=== PATIENT | male | born 1980 | race Hispanic/Latino ===

== ENCOUNTER → 2017-05-15 | Day surgery (SDC) | payer OTHER ==
[~2017-05-15] MED LIST: ATIVAN1 MG PO; FENTANYL CITRATE/PF 100MCG/2 ML INJ ONE; HYOSCYAMINE SULFATE 0.5 MG/ML AMP ONE; LIDOCAINE HCL 2% LOCAL INJ 5 ML SDV VIAL INJ ONE; MIDAZOLAM HCL 2 MG/2 ML VIAL ONE; NORCO 7.5-3251 EACH PO; PROPOFOL IV EMULSION 10 MG/ML 50 ML VIAL ONE; ZOLOFT50 MG
--- NOTE | 2017-05-15 12:43 | Operative Report ---
DATE OF PROCEDURE: May 15, 2017 REFERRING PHYSICIAN: Dominik Millan MD PROCEDURE PERFORMED: Colonoscopy. INDICATIONS FOR COLONOSCOPY: Patient is status post diversion colostomy for perforated diverticulitis. Colostomy is carried out to clear the colon prior to colostomy reversal. MEDICATION: Patient was done under MAC. Please see anesthesiologist's note. PROCEDURE: With the patient in the supine position, the flexible fiberoptic Olympus colonoscope was inserted through the stoma and advanced all the way to the cecum. It was then withdrawn slowly. Mucosa overlying the cecum, ascending colon, and transverse colon appeared to be within normal limits. Some diverticular disease was noted proximal to the stoma. The scope was subsequently withdrawn. Patient tolerated the procedure well. IMPRESSION: Diverticulosis. Otherwise, the colon is within normal limits. The patient is cleared for colostomy reversal. Job#: [id number] cc:DOMINIK MILLAN MD
== END | disposition home or self-care (01) ==
LOC: OR 08:37
PROVIDERS: ATTEND Internal Medicine Gastroenterology
DX: Z43.3 Encounter for attention to colostomy (principal); K57.30 Diverticulosis of large intestine without perforation or abscess without bleeding; R11.2 Nausea with vomiting, unspecified; R12 Heartburn; R03.0 Elevated blood-pressure reading, without diagnosis of hypertension; Z68.34 Body mass index [BMI] 34.0-34.9, adult
CPT/HCPCS: 45378; J1980; J2001; J2250

== ENCOUNTER → 2017-06-21 | Outpatient (CLI) | payer OTHER ==
[~2017-06-21] MED LIST changes: -FENTANYL CITRATE/PF 100MCG/2 ML INJ ONE; -HYOSCYAMINE SULFATE 0.5 MG/ML AMP ONE; -LIDOCAINE HCL 2% LOCAL INJ 5 ML SDV VIAL INJ ONE; -MIDAZOLAM HCL 2 MG/2 ML VIAL ONE; -PROPOFOL IV EMULSION 10 MG/ML 50 ML VIAL ONE
--- NOTE | 2017-06-21 16:21 | Diagnostic Imaging Report ---
TECHNIQUE: Magnetic resonance imaging of the LEFT HAND was performed WITHOUT injected contrast. HISTORY: Left hand pain COMPARISON: None. FINDINGS: Bones: No fracture. Cyst in the capitate. Joints: Widening of the scapholunate interval. No arthritis. Negative ulnar variance. Soft Tissues: Soft tissue swelling of the thumb. IMPRESSION: No acute osseous abnormality. Soft tissue swelling of the thumb. Signed by: Dr. Brooks Byrd M.D. on 06/21/2017 4:17 PM
== END ==
LOC: CT 14:42
PROVIDERS: ATTEND Family Medicine
DX: S60.012A Contusion of left thumb without damage to nail, initial encounter (principal); S60.222A Contusion of left hand, initial encounter; M79.89 Other specified soft tissue disorders

== ENCOUNTER 2017-07-15 11:01 | Inpatient (IN) | payer OTHER ==
[2017-07-12 09:14] LABS: BASOPHILS % 0.4 % (0.0-1.0); EOSINOPHILS # (AUTO) 0.3 (0.0-0.4); EOSINOPHILS % 3.2 % (0.0-6.0); HEMATOCRIT 43.9 % (38.2-49.6); HEMOGLOBIN 16.1 g/dL (14.0-18.0); LYMPHOCYTES # (AUTO) 2.1 (1.0-3.2); LYMPHOCYTES % 25.3 % (18.0-39.1); MEAN CORPUSCULAR HGB CONC 36.7 g/dL (31-35); MEAN CORPUSCULAR VOLUME 87.3 fL (81-99); MONOCYTES # (AUTO) 0.8 (0.2-0.8); MONOCYTES % 9.3 % (4.4-11.3); NEUTROPHILS % 61.4 % (38.7-80.0); PLATELET COUNT 247 x10e3/uL (140-360); RED BLOOD COUNT 5.03 x10e6/uL (4.3-5.7); RED CELL DISTRIBUTION WIDTH 12.3 % (11.7-14.4)
[2017-07-15] VITALS (14 sets, daily range): BP systolic 130–146; BP diastolic 84–100
[~2017-07-15] VITALS: Ht 165.1 cm; Wt 94.8 kg
[~2017-07-15 11:01] MED LIST changes: +PANTOPRAZOLE SO40 MG PO; +SUCRALFATE1 GM PO
--- OUTSIDE RECORDS SUMMARY | 2017-07-15 11:03 | XMS REPORT ---
Author Author [facility] Address Unknown Phone Unavailable Care Team Providers Care Software Quality Assurance Specialist Name Role Phone EMERALD CORDERO Unavailable Unavailable OLIVARESIVAN Unavailable Unavailable Problems This patient has no known problems. Allergies, Adverse Reactions, Alerts This patient has no known allergies or adverse reactions. Medications This patient has no known medications. Results Test Description Test Time Test Comments Text Results Atomic Results Result Comments CT HAND LEFT WO [place] [address] Patient Name: SPIKE CORREA MR #: [id number] : 1980 Age/Sex: 37/M Req #: [id number] [facility] Physician: Ordered by: EMERALD CORDERO DO Report #: [id number] Location: CT Room/Bed: Procedure: [id number] CT/CT HAND LEFT WO Exam Date: Exam Time: REPORT STATUS: Signed TECHNIQUE: Magnetic resonance imaging of the LEFT HAND was performed WITHOUT injected contrast. HISTORY: Left hand pain COMPARISON: None. FINDINGS: Bones: No fracture. Cyst in the capitate. Joints: Widening of the scapholunate interval. No arthritis. Negative ulnar variance. Soft Tissues: Soft tissue swelling of the thumb. IMPRESSION: No acute osseous abnormality. Soft tissue swelling of the thumb. Signed by: Dr. Alfie Costello M.D. on 06/21/2017 4: 17 PM Dictated By: ALFIE COSTELLO MD 16 Transcribed By: CLAUDETTE on 06/21/171616 COPY TO: EMERALD CORDERO DO CHEST SINGLE (PORTABLE) [place] [address] Patient Name: SPIKE CORREA MR #: [id number] : 1980 Age/Sex: 36/M Req #: [id number] Adm Physician: IVAN OLIVARES MD Ordered by: IVAN OLIVARES MD Report #: [id number] Location: ICU Room/Bed: ICU [facility] Procedure: [id number] DX/CHEST SINGLE (PORTABLE) Exam Date: 12/01 Exam Time: 1218 REPORT STATUS: Signed EXAMINATION: CHEST SINGLE (PORTABLE) INDICATION: COMPARISON: Chest radiograph 06/27/2016 FINDINGS: AP view TUBES and LINES: Nasogastric tube overlies the expected course of the esophagus with tip extending out of the field of view below the diaphragm. LUNGS: Lungs are moderately inflated. Lungs are clear. There is no evidence of pneumonia or pulmonary edema. PLEURA: No pleural effusion or pneumothorax. HEART AND MEDIASTINUM: The cardiomediastinal silhouette is unremarkable. BONES AND SOFT TISSUES: No acute osseous lesion. Soft tissues are unremarkable. UPPER ABDOMEN: No free air under the diaphragm. IMPRESSION: No acute thoracic abnormality. Signed by: DR. Yobani Monge MD on 12/01/2016 12:37 PM Dictated By: YOBANI MONGE MD 1237 Transcribed By: CLAUDETTE on 12/01/16 1237 COPY TO: IVAN OLIVARES MD CT ABDOMEN/PELVIS W [place] [address] [place], [place] [address] Patient Name: SPIKE CORREA MR #: [id number] : 1980 Age/Sex: 36/M Req # : [id number] Adm Physician: IVAN OLIVARES MD Ordered by: MARJ GOLD MD Report #: [id number] Location: MED/SURG2 Room/Bed: [facility] Procedure: [id number] CT/CT ABDOMEN/PELVIS W Exam Date: Exam Time: REPORT STATUS: Signed PROCEDURE: CT ABDOMEN AND PELVIS WITH CONTRAST COMPARISON: [facility], CT, CT ABDOMEN/PELVIS W, 11/22/2016, 17:39. INDICATIONS: Diverticulitis TECHNIQUE: Routine protocol Volumetric CT abdomen and pelvis after administration of 100 mL Isovue-370 intravenous contrast and dilated positive enteric contrast. DLP: 543.49. FINDINGS: Clear lung bases. No pleural effusions. Normal heart size. Liver: Stable 1.5 cm low attenuation nodule within the right lobe (image 20, series 2). Otherwise, normal Gallbladder: Distended to 11 cm length; otherwise, normal. Pancreas: Normal Spleen: Standard 14 cm. Adrenal glands: Normal Kidneys: 2 cm simple cyst on the right. Otherwise, normal. Urinary bladder: Bladder thickening at the roof of left lateral margin (see image 50, series 301). Prostate seminal vesicles: Normal Bowel: Normal caliber. Extensive inflammation of the sigmoid colon consistent with known perforated diverticulitis/colitis. Peritoneum: Intraperitoneal abscess measuring 6.5 x 3.6 x 3 cm (image 63, series 2) with extensive regional pelvic inflammation and multiple small foci of extra luminal gas. The described abscess is in continuity with a tract extending to the superior bladder wall (image 73, series 2). Vasculature: Normal caliber. Lymph nodes: Subcentimeter retroperitoneal (image 41, series 2). Otherwise, normal Skeleton: Normal Soft tissues: Normal CONCLUSION: 1. Complicated sigmoid diverticulitis/colitis. The intraperitoneal abscess seen on the study from November 22 has evolved to now measure 6.5 x 3.6 x 3 cm. There is associated thickening of the bladder wall, presumably reactive cystitis. No definite rectovesical fistula at this time. 2. Hydropic gallbladder. 3. Indeterminant 1.5 cm right liver nodule. Primary differential diagnosis includes abscess, complex cyst or mass. Followup cross-sectional liver dedicated imaging (CT or MRI) is recommended after resolution of complicated diverticulitis. 4. Splenomegaly. Dictated by: Ravi Edge M.D. on 11/26/2016 at 12:57 Electronically approved by: Ravi Edge M.D. on 11/26/2016 at 12:57 Dictated By: RAVI EDGE MD 1257 Transcribed By: AYESHA on 11/26/16 1257 COPY TO: MARJ GOLD MD CT ABDOMEN/PELVIS W [place] [address] Patient Name: SPIKE CORREA MR #: [id number] : 1980 Age/Sex: 36/M Req # : [id number] [facility] Physician: Ordered by: EMERALD CORDERO DO Report #: [id number] Location: CT Room/Bed: Procedure: [id number] CT/CT ABDOMEN/PELVIS W Exam Date: 11/22/16 Exam Time : 1700 REPORT STATUS: Signed PROCEDURE: CT ABDOMEN AND PELVIS WITH CONTRAST TECHNIQUE: The abdomen and pelvis were scanned utilizing a multidetector helical scanner from the diaphragm to the lesser trochanter after the IV administration of 100 cc of Isovue 370 and the oral administration of dilute Gastrografin. Coronal and sagittal multiplanar reformations were obtained. COMPARISON: None. INDICATIONS: LLQ PAIN FINDINGS: LOWER THORAX: Unremarkable. HEPATOBILIARY: Normal hepatic size and contour. 1.1 x 1.4 x 1.6 cm somewhat ill-defined hypodense lesion in hepatic segment (series 2, image 29), which does not measure simple fluid. No biliary ductal dilation. Gallbladder is unremarkable. SPLEEN: Mild clinically, measuring 13.9 cm in AP diameter. PANCREAS: No focal masses or ductal dilatation. ADRENALS: No adrenal nodules. KIDNEYS/ URETERS: No hydronephrosis, stones, or solid mass lesions. PELVIC ORGANS/ BLADDER: Bladder is unremarkable. Prostate is unremarkable. PERITONEUM / RETROPERITONEUM: No free air or fluid. LYMPH NODES: No lymphadenopathy. VESSELS: Unremarkable. GI TRACT: Descending and sigmoid colon diverticulosis. There is an approximately 11 cm segment of the proximal and mid sigmoid colon, which shows moderate to marked wall thickening, and moderate surrounding inflammatory changes. A 3.7 x 5.3 x 4.0 cm fluid and gas collection is located directly above the previously described segment of sigmoid colon (series 2 image 56 and sagittal image 68) and shows peripheral enhancement. An extraluminal air focus is noted in the mid pelvis (series 2, image 61). Resolution is unremarkable, without dilation, obstruction, or wall thickening. BONES AND SOFT TISSUES: No acute bony abnormalities. Soft tissues are grossly unremarkable. IMPRESSION: 1. findings likely represent acute sigmoid diverticulitis, with development of contained perforation/abscess superior to the midportion of the sigmoid colon (which is not amenable to percutaneous drainage given its location). No pneumoperitoneum. Sigmoid focal colitis is a secondary consideration. 2. Indeterminate ill-defined 1.6 cm lesion in hepatic segment which does not measure simple fluid. This may be further assessed with contrast-enhanced abdominal MRI with liver mass protocol to avoid further radiation exposure. 3. Findings discussed with Neftali Nguyen PA-C November 22, 2016 at 1815 hrs. Kyaw Sabillon M.D. Dictated by: Kyaw Sabillon M.D. on 11/22/2016 at 18:24 Electronically approved by : Kyaw Sabillon M.D. on 11/22/2016 at 18:24 Dictated By : KYAW SABILLON MD 23 Transcribed By: AYESHA on 11/22/161823 COPY TO: EMERALD CORDERO DO
[2017-07-15] MEDS ORDERED: MINERAL OIL STERILE 10ML VIAL ONE (11:32)
[2017-07-15] MEDS ORDERED: NALOXONE HCL INJ 0.4 MG/ML AMP IV PRN (15:45)
[2017-07-15] MEDS ORDERED: ACETAMINOPHEN 1000 MG/100 ML IV PRN (15:45)
[2017-07-15] MEDS ORDERED: PROMETHAZINE HCL (IM) 25 MG/ML VIAL IV PRN (15:45)
[2017-07-15] MEDS ORDERED: HYDROMORPHONE 0.2MG/ML-SOD CHL 30ML PCA SYRINGE IV ONE (16:04)
[2017-07-15] MEDS ORDERED: HYDRALAZINE HCL 20 MG/ML VIAL ONE (16:18)
[2017-07-15] MEDS ORDERED: METOCLOPRAMIDE HCL 10 MG/2ML VIAL ONE (16:22)
[2017-07-15] MEDS ORDERED: ONDANSETRON HCL INJ 2 MG/ML VIAL ONE ×2 (16:22→18:29)
--- NOTE | 2017-07-15 16:34 | Operative Report ---
DATE OF PROCEDURE: July 15, 2017 PREOPERATIVE DIAGNOSIS: Status post perforated diverticulitis with Daysi's pouch and end colostomy secondary to diverticulitis. POSTOPERATIVE DIAGNOSIS: Status post perforated diverticulitis with Daysi's pouch and end colostomy secondary to diverticulitis. OPERATION PERFORMED: Exploratory laparotomy, low anterior resection with mobilization of the splenic flexure, extensive lysis of adhesions and closure of colostomy and transanal stapled anastomosis. TIRE AND TUBE REPAIRER: Dr. Mckinley Millan and Myah RAMIREZ. ANESTHESIA: General. COMPLICATIONS: None. ESTIMATED BLOOD LOSS: 200 mL. DESCRIPTION OF PROCEDURE: With the patient lying in bed in the supine position with the legs up in stirrups, the abdomen and perineum were prepped with Betadine solution and draped in the usual manner. An elliptical incision was made around the left lower quadrant colostomy site. The colostomy was mobilized all the way down to the fascia and was then freed up from the fascia. The excess of the colostomy was then resected, and the colostomy of the proximal colon was then dropped back into the intraabdominal cavity. Gloves and instruments were then changed, and the old colostomy site was isolated from the surgical field. A lower midline incision was then made. It was carried down through the subcutaneous tissue into the midline fascia. The peritoneum was opened, and the abdomen was entered. Upon entering the abdominal cavity, multiple adhesions were encountered. The proximal colostomy site was identified. All of the adhesions were then slowly and carefully taken down. We could not at this point see the distal end of the colon. The left colon was then mobilized off of the lateral gutter, and the splenic flexure was brought down using the Enseal device, and the colon was divided at the level of the splenic flexure and the excess was sent for pathological examination. A partial omentectomy was also performed, and the specimens were sent for pathological examination. The transverse colon was then mobilized so that it would reach all the way down into the pelvis. After this was done, all of the pelvic adhesions were then slowly and carefully taken down and the stump of the distal sigmoid colon was then identified. The sigmoid colon was then mobilized posteriorly, and the upper rectum was mobilized posteriorly and the upper rectum was then mobilized circumferentially using the Enseal device, and the lower sigmoid colon that was still present was resected with another application of the contour device and sent for pathological examination. Once this was done, a number 29 EEA anvil was placed in the proximal colon and sutured in place with a purse-string of 2-0 Prolene. We then went transanally and dilated the anus and the rectum with the dilators, and the 29 stapler was then introduced transanally and brought out through the center of the staple line in the upper rectum. The stapler and the anvil were then joined, and the stapler was slowly closed and fired. Two perfect doughnuts were obtained. Once this was done, gloves and instruments and gowns were exchanged. The whole area was then thoroughly irrigated, and perfect hemostasis was ascertained. The anastomosis was then reinforced with interrupted sutures of 3-0 silk. The 10 flat Shantanu-Ortega was then brought out through the right lower quadrant incision and placed into the rectal space and sutured to the skin with 2-0 silk. The peritoneum of the colostomy site was then closed with a running suture of number 1 Vicryl. The peritoneum was closed with a running number 1 Vicryl. The midline fascia was closed with a running suture of number 1 Vicryl. A 1/4-inch Rojas drain was left in the subcutaneous tissue, and the skin was closed with clips. The colostomy site fascia was then approximated using interrupted [id number] of number 1 Vicryl. The 1/4 inch [place] drain was left in the fat, and the skin was closed with interrupted vertical mattress sutures of 2-0 nylon and leah. Dressings were applied. The sponge, lap and needle count was correct. The patient tolerated the procedure well and returned to the recovery room in stable condition. Job#: [id number]
[2017-07-15] MEDS ORDERED: LABETALOL HCL 20 ML ONE (17:08)
[2017-07-15] MEDS ORDERED: INSULIN REGULAR, HUMAN 100 UNIT/1 ML 3ML VIAL ONE (17:22)
[2017-07-15] MEDS ORDERED: CEFOXITIN 1GM/ DEXTROSE 50ML 50 ML IV SCH (18:00)
[2017-07-15] MEDS ORDERED: CEFOXITIN SOD 1 GM VIAL ONE (18:29)
[2017-07-15] MEDS ORDERED: SEVOFLURANE INHAL SOLN 250 ML PEN BTL ONE (18:29)
[2017-07-15] MEDS ORDERED: GLYCOPYRROLATE INJ 1MG/ 5 ML SYR ONE (18:29)
[2017-07-15] MEDS ORDERED: NEOSTIGMINE 5 MG/5ML SYR ONE (18:29)
[2017-07-15] MEDS ORDERED: LIDOCAINE HCL 2% LOCAL INJ 5 ML SDV VIAL INJ ONE (18:29)
[2017-07-15] MEDS ORDERED: ROCURONIUM BROMIDE 10 MG/ML 5ML VIAL ONE (18:29)
[2017-07-15] MEDS ORDERED: DEXAMETHASONE SOD PHOS INJ 4 MG/ML VIAL ONE (18:29)
[2017-07-15] MEDS ORDERED: LABETALOL HCL 5 MG/ML 20ML VIAL ONE (18:29)
[2017-07-15] MEDS ORDERED: ACETAMINOPHEN 1000 MG/100 ML IV ONE (18:29)
[2017-07-15] MEDS ORDERED: PROPOFOL IV EMULSION 10 MG/ML 20 ML VIAL ONE (18:29)
[2017-07-15] MEDS ORDERED: MIDAZOLAM HCL 2 MG/2 ML VIAL ONE (18:40)
[2017-07-15] MEDS ORDERED: FENTANYL CITRATE/PF 100MCG/2 ML INJ ONE (18:40)
[2017-07-15] MEDS ORDERED: MORPHINE SULFATE INJ 10 MG/ML ONE (18:40)
[2017-07-15] MEDS: SODIUM CHLORIDE 0.9% 250ML IRRIG IR SCH ×2 (19:45→23:45)
[2017-07-15] MEDS ORDERED: LACTATED RINGER'S 0 ML ONE (19:51)
[2017-07-15] MEDS: PANTOPRAZOLE 40 MG 10ML VIAL IV SCH (21:34)
[2017-07-15] MEDS: DEXTROSE 5%/LACTATED RINGERS 1,000 ML IV SCH (21:34)
[2017-07-15] MEDS: CEFOXITIN SOD 1 GM VIAL IV SCH (21:35)
[2017-07-15] MEDS: PROMETHAZINE 12.5MG/ NACL 0.9% 50 ML IV PRN (21:36)
[2017-07-16] VITALS (33 sets, daily range): BP systolic 84–167; BP diastolic 62–97
[2017-07-16] MEDS: KETOROLAC TROMETHAMINE 30 MG/ML VIAL IV PRN ×3 (01:00→20:15)
[2017-07-16] MEDS: HYDROMORPHONE 0.2MG/ML-SOD CHL 30ML PCA SYRINGE IV PRN ×3 (03:33→19:20)
[2017-07-16] MEDS: CEFOXITIN SOD 1 GM VIAL IV SCH ×2 (03:33)
[2017-07-16] MEDS: SODIUM CHLORIDE 0.9% 250ML IRRIG IR SCH ×10 (03:33→23:59)
[2017-07-16] MEDS ORDERED: CEFOXITIN 1GM/ DEXTROSE 50ML 50 ML IV ONE (03:41)
[2017-07-16] MEDS ORDERED: CEFOXITIN SOD 1 GM VIAL ONE (03:57)
[2017-07-16] MEDS ORDERED: LACTATED RINGER'S 1,000 ML IV ONE (04:15)
[2017-07-16] MEDS: DEXTROSE 5%/LACTATED RINGERS 1,000 ML IV SCH ×4 (05:30→23:58)
[2017-07-16 06:43] LABS: BASOPHILS % 0.1 % (0.0-1.0); HEMATOCRIT 35.2 % (38.2-49.6); HEMOGLOBIN 12.7 g/dL (14.0-18.0); LYMPHOCYTES # (AUTO) 1.6 (1.0-3.2); LYMPHOCYTES % 8.1 % (18.0-39.1); MEAN CORPUSCULAR HEMOGLOBIN 32.2 pg (28-32); MEAN CORPUSCULAR HGB CONC 36.1 g/dL (31-35); MEAN CORPUSCULAR VOLUME 89.1 fL (81-99); MONOCYTES # (AUTO) 2.6 (0.2-0.8); MONOCYTES % 13.1 % (4.4-11.3); NEUTROPHILS # (AUTO) 15.3 (2.1-6.9); NEUTROPHILS % 78.2 % (38.7-80.0); PLATELET COUNT 340 x10e3/uL (140-360); RED BLOOD COUNT 3.95 x10e6/uL (4.3-5.7); RED CELL DISTRIBUTION WIDTH 12.5 % (11.7-14.4)
[2017-07-16 06:54] LABS: ANION GAP 14.6 mmol/L (8-16); BLOOD UREA NITROGEN 14 mg/dL (7-26); BUN/CREATININE RATIO 12 (6-25); CALCIUM 8.5 mg/dL (8.4-10.2); CARBON DIOXIDE 23 mmol/L (22-29); CHLORIDE 107 mmol/L (98-107); CREATININE, SERUM 1.15 mg/dL (0.72-1.25); EST GLOMERULAR FILTRATION RATE > 60 ML/MIN (60-); GLUCOSE 157 mg/dL (74-118); POTASSIUM 4.6 mmol/L (3.5-5.1); SODIUM 140 mmol/L (136-145)
[2017-07-16] MEDS: PROMETHAZINE 12.5MG/ NACL 0.9% 50 ML IV PRN ×2 (08:25→23:38)
[2017-07-16] MEDS: PANTOPRAZOLE 40 MG 10ML VIAL IV SCH (17:00)
[2017-07-17] VITALS (33 sets, daily range): BP systolic 118–161; BP diastolic 72–99
[2017-07-17] MEDS: HYDROMORPHONE 0.2MG/ML-SOD CHL 30ML PCA SYRINGE IV PRN ×3 (03:05→17:29)
[2017-07-17] MEDS: SODIUM CHLORIDE 0.9% 250ML IRRIG IR SCH ×6 (04:36→23:15)
[2017-07-17 05:58] LABS: BASOPHILS % 0.2 % (0.0-1.0); EOSINOPHILS # (AUTO) 0.1 (0.0-0.4); HEMATOCRIT 27.4 % (38.2-49.6); HEMOGLOBIN 9.8 g/dL (14.0-18.0); LYMPHOCYTES % 17.1 % (18.0-39.1); MEAN CORPUSCULAR HEMOGLOBIN 32.6 pg (28-32); MEAN CORPUSCULAR HGB CONC 35.8 g/dL (31-35); MONOCYTES # (AUTO) 1.4 (0.2-0.8); MONOCYTES % 11.8 % (4.4-11.3); NEUTROPHILS % 69.6 % (38.7-80.0); PLATELET COUNT 185 x10e3/uL (140-360); RED BLOOD COUNT 3.01 x10e6/uL (4.3-5.7); RED CELL DISTRIBUTION WIDTH 12.6 % (11.7-14.4)
[2017-07-17] MEDS: DEXTROSE 5%/LACTATED RINGERS 1,000 ML IV SCH ×3 (05:59→22:05)
[2017-07-17 06:34] LABS: ANION GAP 8.9 mmol/L (8-16); BLOOD UREA NITROGEN 14 mg/dL (7-26); BUN/CREATININE RATIO 16 (6-25); CALCIUM 8.5 mg/dL (8.4-10.2); CARBON DIOXIDE 28 mmol/L (22-29); CHLORIDE 107 mmol/L (98-107); EST GLOMERULAR FILTRATION RATE > 60 ML/MIN (60-); GLUCOSE 103 mg/dL (74-118); POTASSIUM 3.9 mmol/L (3.5-5.1); SODIUM 140 mmol/L (136-145)
[2017-07-17] MEDS: PANTOPRAZOLE 40 MG 10ML VIAL IV SCH (15:45)
[2017-07-17] MEDS ORDERED: ACETAMINOPHEN 1000 MG/100 ML IV SCH (18:00)
[2017-07-17] MEDS ORDERED: ACETAMINOPHEN 1000 MG/100 ML IV PRN (18:30)
[2017-07-17] MEDS: PROMETHAZINE 12.5MG/ NACL 0.9% 50 ML IV PRN (20:07)
[2017-07-17] MEDS: BISACODYL 10 MG SUPP PR SCH (21:24)
[2017-07-18] VITALS (16 sets, daily range): BP systolic 134–173; BP diastolic 73–107
[2017-07-18] MEDS: HYDROMORPHONE 0.2MG/ML-SOD CHL 30ML PCA SYRINGE IV PRN ×3 (00:30→22:10)
[2017-07-18] MEDS: SODIUM CHLORIDE 0.9% 250ML IRRIG IR SCH ×2 (03:25→07:54)
[2017-07-18] MEDS: KETOROLAC TROMETHAMINE 30 MG/ML VIAL IV PRN ×2 (03:25→15:45)
[2017-07-18 07:00] LABS: RED BLOOD COUNT 2.67 x10e6/uL (4.3-5.7)
[2017-07-18 07:01] LABS: EOSINOPHILS % 3.1 % (0.0-6.0); HEMATOCRIT 24.1 % (38.2-49.6); HEMOGLOBIN 8.6 g/dL (14.0-18.0); LYMPHOCYTES % 16.9 % (18.0-39.1); MEAN CORPUSCULAR HEMOGLOBIN 32.2 pg (28-32); MEAN CORPUSCULAR HGB CONC 35.7 g/dL (31-35); MEAN CORPUSCULAR VOLUME 90.3 fL (81-99); MONOCYTES % 9.5 % (4.4-11.3); NEUTROPHILS % 70.1 % (38.7-80.0); PLATELET COUNT 178 x10e3/uL (140-360); RED CELL DISTRIBUTION WIDTH 12.5 % (11.7-14.4)
[2017-07-18 07:02] LABS: BASOPHILS % 0.2 % (0.0-1.0); EOSINOPHILS # (AUTO) 0.3 (0.0-0.4); LYMPHOCYTES # (AUTO) 1.5 (1.0-3.2); MONOCYTES # (AUTO) 0.9 (0.2-0.8); NEUTROPHILS # (AUTO) 6.3 (2.1-6.9)
[2017-07-18 07:21] LABS: ANION GAP 9.6 mmol/L (8-16); CARBON DIOXIDE 26 mmol/L (22-29); CHLORIDE 104 mmol/L (98-107); POTASSIUM 3.6 mmol/L (3.5-5.1); SODIUM 136 mmol/L (136-145)
[2017-07-18 07:22] LABS: BLOOD UREA NITROGEN 8 mg/dL (7-26); BUN/CREATININE RATIO 10 (6-25); CALCIUM 8.4 mg/dL (8.4-10.2); CREATININE, SERUM 0.77 mg/dL (0.72-1.25); EST GLOMERULAR FILTRATION RATE > 60 ML/MIN (60-); GLUCOSE 101 mg/dL (74-118)
[2017-07-18] MEDS: BISACODYL 10 MG SUPP PR SCH (08:00)
[2017-07-18] MEDS: DEXTROSE 5%/LACTATED RINGERS 1,000 ML IV SCH ×3 (10:57→23:58)
[2017-07-18] MEDS: PROMETHAZINE 12.5MG/ NACL 0.9% 50 ML IV PRN ×2 (12:46→22:21)
[2017-07-18] MEDS: PANTOPRAZOLE 40 MG 10ML VIAL IV SCH (15:45)
[2017-07-18] MEDS ORDERED: NALOXONE HCL INJ 0.4 MG/ML AMP IV PRN (16:15)
[2017-07-18] MEDS ORDERED: HYDROMORPHONE 0.2MG/ML-SOD CHL 30ML PCA SYRINGE IV PRN (16:15)
[2017-07-18 16:16] LABS: HEMATOCRIT 24.7 % (38.2-49.6)
[2017-07-19] VITALS: BP 161/99
[2017-07-19 04:00] VITALS: BP 166/99
[2017-07-19] MEDS: PROMETHAZINE 12.5MG/ NACL 0.9% 50 ML IV PRN (05:44)
[2017-07-19 08:20] VITALS: BP 170/88
[2017-07-19] MEDS: DEXTROSE 5%/LACTATED RINGERS 1,000 ML IV SCH (09:31)
[2017-07-19] MEDS: HYDROMORPHONE 0.2MG/ML-SOD CHL 30ML PCA SYRINGE IV PRN (09:32)
[2017-07-19] MEDS: PANTOPRAZOLE 40 MG 10ML VIAL IV SCH (14:34)
[2017-07-19] MEDS: KETOROLAC TROMETHAMINE 30 MG/ML VIAL IM PRN ×2 (14:35→21:26)
[2017-07-19 20:00] VITALS: BP 158/88
[2017-07-19] MEDS: HYDROCODONE/APAP 7.5MG-325MG 1 EA TAB PO PRN (20:21)
[2017-07-19] MEDS: BISACODYL 10 MG SUPP PR SCH (21:26)
[2017-07-19 22:48] VITALS: BP 158/88
[2017-07-20] VITALS (7 sets, daily range): BP systolic 149–178; BP diastolic 77–88
[2017-07-20] MEDS: HYDROCODONE/APAP 7.5MG-325MG 1 EA TAB PO PRN ×4 (01:01→23:55)
[2017-07-20] MEDS: PROMETHAZINE 12.5MG/ NACL 0.9% 50 ML IV PRN ×2 (01:35→20:48)
[2017-07-20] MEDS: KETOROLAC TROMETHAMINE 30 MG/ML VIAL IM PRN ×3 (03:18→19:53)
[2017-07-20] MEDS: HYDROMORPHONE 1MG/1ML INJ IV PRN ×2 (07:50→14:45)
[2017-07-20] MEDS: DEXTROSE 5%/LACTATED RINGERS 1,000 ML IV SCH (07:50)
[2017-07-20] MEDS: BISACODYL 10 MG SUPP PR SCH (07:51)
[2017-07-20] MEDS: PANTOPRAZOLE 40 MG 10ML VIAL IV SCH (14:45)
[2017-07-21] VITALS (8 sets, daily range): BP systolic 134–199; BP diastolic 68–86
[2017-07-21] MEDS: KETOROLAC TROMETHAMINE 30 MG/ML VIAL IM PRN ×3 (01:10→22:48)
[2017-07-21] MEDS: DEXTROSE 5%/LACTATED RINGERS 1,000 ML IV SCH ×2 (03:57→20:40)
[2017-07-21] MEDS: HYDROCODONE/APAP 7.5MG-325MG 1 EA TAB PO PRN ×3 (04:05→20:40)
[2017-07-21] MEDS: HYDROMORPHONE 1MG/1ML INJ IV PRN ×2 (08:16→16:04)
[2017-07-21] MEDS: PANTOPRAZOLE 40 MG 10ML VIAL IV SCH (16:04)
[2017-07-22] VITALS: BP 144/74
[2017-07-22 04:00] VITALS: BP 157/81
[2017-07-22] MEDS: HYDROCODONE/APAP 7.5MG-325MG 1 EA TAB PO PRN ×3 (04:16→14:10)
[2017-07-22] MEDS: PROMETHAZINE 12.5MG/ NACL 0.9% 50 ML IV PRN ×2 (04:16→07:30)
[2017-07-22] MEDS: KETOROLAC TROMETHAMINE 30 MG/ML VIAL IM PRN ×2 (07:43→15:07)
[2017-07-22] MEDS: SIMETHICONE 80 MG CHEW PO PRN ×2 (07:52→14:10)
[2017-07-22 08:11] VITALS: BP 168/84
[2017-07-22 11:09] VITALS: BP 168/84
[2017-07-22 13:41] VITALS: BP 140/89
[2017-07-22] MEDS: PANTOPRAZOLE 40 MG 10ML VIAL IV SCH (14:49)
[2017-07-22 17:19] VITALS: BP 163/80
[2017-07-22] MEDS ORDERED: HYDROCODONE/APAP 7.5MG-325MG 1 EA TAB PO ONE (17:45)
[2017-07-22] MEDS ORDERED: HYDROCODONE/APAP 7.5MG-325MG 1 EA TAB PO PRN (18:00)
== END 2017-07-22 18:34 | disposition home or self-care (01) | DRG 331 ==
LOC: OR 11:01 → MED/SURG 16:07 → ICU 18:06 → MED/SURG 07-18 11:44 → ACU 07-22 10:48 → MED/SURG 07-22 10:48
PROVIDERS: ADMIT Surgery; ATTEND Surgery
PROC: 0DNW0ZZ Release Peritoneum, Open Approach (ICD-10-PCS; 2017-07-15)
PROC: 0DBN0ZZ Excision of Sigmoid Colon, Open Approach (ICD-10-PCS; principal; 2017-07-15 12:01)
PROC: 0DBU0ZZ Excision of Omentum, Open Approach (ICD-10-PCS; 2017-07-15 12:01)
DX: Z43.3 Encounter for attention to colostomy (principal); K57.30 Diverticulosis of large intestine without perforation or abscess without bleeding
CPT/HCPCS: 36415; 80048; 82948; 85014; 85018; 85025; 86850; 86900; 88305; 88307; J0360; J0694; J1100; J1170; J1885; J2001; J2250; J2270; J2405; J2550; J2765; J7120

== ENCOUNTER 2017-07-23 01:35 | Inpatient (IN) | payer OTHER ==
[~2017-07-23] VITALS: Ht 165.1 cm; Wt 91.6 kg
[2017-07-23] VITALS (29 sets, daily range): BP systolic 97–162; BP diastolic 72–119
--- OUTSIDE RECORDS SUMMARY | 2017-07-23 01:38 | XMS REPORT | Continuity of Care Document ---
Author Author [facility] Organization [facility] Address [address] [place] [address] Phone Unavailable Care Team Providers Care Director Integrated Name Role Phone CONSUELOEMERALD PCP Insurance Providers Guarantor Francis Correa Address [address] [place] [address] Email [email or web address] Payer [facility] Policy Number [id number] Subscriber's Name Francis Correa Relationship 18 Self / Same As Patient Group Number [id number] Group Name [employer]. Effective Date 14 Advance Directives Directive Response Recorded Date/Time Does the patient have an advance directive? No 07/15/17 7:10pm If yes, is advance directive on file with [facility]? No 07/15/17 7:10pm If not on file with [facility] will patient provide a copy? No 07/15/17 7:10pm Do you have a Directive to Physician? No 07/09/17 10:04am Do you have a Medical Power of Core Winder Machine Operator? No 07/09/17 10:04am Do you have an out of hospital Do Not Resuscitate Order? No 07/09/17 10:04am Do you have any special needs we should be aware of? No 07/09/17 10:04am Do you have a support person here with you today? Yes 07/09/17 10:04am Did patient receive Notice of Privacy Practices? Yes 07/09/17 10:04am Did patient receive patient rights and responsibilities? Yes 07/09/17 10:04am Problems Medical Problem Onset Date Status Diverticulitis of intestine with perforation and abscess Unknown Medications Current Home Medications Medication Dose Units Route Directions Days Qty Instructions Start Date Pantoprazole Sodium (Protonix) 40 Mg Tablet.dr 40 Mg Oral Daily Sucralfate 1 Gm Tablet 1 Gm Oral Four Times Daily Past Home Medications Medication Directions Ordered Status Hydrocodone Bit/Acetaminophen ([place] 7.5-325 Tablet) 1 Each Tablet, 1 Ea Oral Every 6 Hours Discontinued Lorazepam (Ativan) 1 Mg Tablet, Oral Every 8 Hours Discontinued Sertraline Hcl (Zoloft) 50 Mg Tablet, 25 Mg Daily Discontinued Social History Social History Problem Response Recorded Date/Time Onset Date Status Hx Psychiatric Problems No 07/15/2017 7:10pm Not Applicable Not Applicable Hx Eating Disorder No 07/15/2017 7:10pm Not Applicable Not Applicable Hx Substance Use Disorder No 07/15/2017 7:10pm Not Applicable Not Applicable Hx Depression No 07/15/2017 7:10pm Not Applicable Not Applicable Hx Alcohol Use Y - SOCIAL 07/15/2017 7:10pm Not Applicable Not Applicable Hx Substance Use Treatment Y - MARIJUANA 07/15/2017 7:10pm Not Applicable Not Applicable Hx Physical Abuse No 07/15/2017 7:10pm Not Applicable Not Applicable Hospital Discharge Instructions No hospital discharge instruction information available. Plan of Care Discharge Date 07/22/17 6:34pm Disposition HOME, SELF-CARE Instructions/Education Provided Stitches and [place] [facility] Diverticulitis Diverticulosis Heart Healthy Diet Hypertension Prescriptions See Medication Section Referrals MARJ GOLD MD (Surgery) Entered Date: 07/22/2017 5:45pm Address: [address] [place] [id number] Additional Instructions/Education REGULAR DIET OOB TYLENOL#3, take one tablet by mouth every 4 hours as needed for pain KEFLEX 500mg, take one tablet by mouth three times a day (every 8 hours) F/U NEXT WEEK Saturday-for suture removal ok to shower on wed Functional Status Query Response Date Recorded Assistive Devices None July 15, 2017 7:30pm Ambulation Ability Independent July 15, 2017 7:30pm Toileting Ability Independent July 20, 2017 6:19pm Allergies, Adverse Reactions, Alerts No known allergies. Immunizations No immunization information available. Vital Signs Acute Vital Signs Vital Response Date/Time Temperature (Fahrenheit) 98.1 degrees F (97.6 - 99.5) 07/22/2017 5:19pm Pulse Pulse Rate (adult) 76 bpm (60 - 90) 07/22/2017 5:19pm Respiratory Rate 18 bpm (12 - 24) 07/22/2017 5:19pm Blood Pressure 163/80 mm Hg 07/22/2017 5:19pm Height 5 ft 5 in 07/15/2017 7:10pm Weight 209.04 lb 07/21/2017 1:51pm Body Mass Index 34.8 kg/m^2 07/21/2017 1:51pm Results Laboratory Results Test Name Result Units Flags Reference Collection Date/Time Result Date/ Time Comments Differential Total Cells Counted 100 12/01/2016 5:19am 12/01/2016 9 :17am Neutrophils % (Manual) 86 % H 40-74 12/01/2016 5:19am 12/01/2016 9:17am Band Neutrophils % 1 % 12/01/2016 5:19am 12/01/2016 9:17am Lymphocytes % (Manual) 5 % L 19-48 12/01/2016 5:19am 12/01/2016 9:17am Monocytes % (Manual) 7 % 3.4-9.0 12/01/2016 5:19am 12/01/2016 9:17am Eosinophils % (Manual) 1 % 0-7 11/29/2016 11:31am 11/29/2016 2:41pm Basophils % (Manual) 1 % 0-1.5 12/01/2016 5:19am 12/01/2016 9:17am Reactive Lymphocytes 2 11/23/2016 6:04am 11/23/2016 7:18am Platelet Estimate MODERATELY DECREASED 12/01/2016 5:19am 2016 9:17am Platelet Morphology Comment NORMAL 12/01/2016 5:1912/01/2016 9: 17am Anisocytosis SLIGHT 11/23/2016 6:04am 11/23/2016 7:18am Red Cell Morphology Comment NORMAL 12/01/2016 5:19am 12/01/2016 9: 17am Total Bilirubin 0.9 mg/dL 0.2-1.2 11/29/2016 11:3111/29/2016 12: 11pm Aspartate Amino Transf (AST/SGOT) 15 IU/L 5-34 11/29/2016 11:3111/29 12:11pm Alanine Aminotransferase (ALT/SGPT) 17 IU/L 0-55 11/29/2016 11:31 12:11pm Total Protein 6.8 g/dL 6.5-8.1 11/29/2016 11:3111/29/2016 12:11pm Albumin 2.9 g/dL L 3.5-5.0 11/29/2016 11:3111/29/2016 12:11pm Globulin 3.9 g/dL H 2.3-3.5 11/29/2016 11:3111/29/2016 12:11pm Albumin/Globulin Ratio 0.7 L 0.8-2.0 11/29/2016 11:3111/29/2016 12: 11pm Alkaline Phosphatase 83 IU/L 40-150 11/29/2016 11:3111/29/2016 12: 11pm Amylase Level 83 U/L 25-125 11/22/2016 8:00pm 11/22/2016 8:36pm Lipase 13 U/L 8-78 11/22/2016 8:00pm 11/22/2016 8:36pm White Blood Count 9.05 x10e3/uL 4.8-10.8 07/18/2017 5:45am 07/18/2017 7 :02am Red Blood Count 2.67 x10e6/uL L 4.3-5.7 07/18/2017 5:45am 07/18/2017 7: 02am Hemoglobin 9.0 g/dL L 14.0-18.0 07/18/2017 4:07pm 07/18/2017 4:17pm Hematocrit 24.7 % L 38.2-49.6 07/18/2017 4:07pm 07/18/2017 4:17pm Mean Corpuscular Volume 90.3 fL 81-99 07/18/2017 5:4507/18/2017 7: 02am Mean Corpuscular Hemoglobin 32.2 pg H 28-32 07/18/2017 5:45am 2017 7:02am Mean Corpuscular Hemoglobin Concent 35.7 g/dL H 31-35 07/18/2017 5:45am 07/18/2017 7:02am Red Cell Distribution Width 12.5 % 11.7-14.4 07/18/2017 5:452017 7:02am Platelet Count 178 x10e3/uL 140-360 07/18/2017 5:45am 07/18/2017 7: 02am Neutrophils (%) (Auto) 70.1 % 38.7-80.0 07/18/2017 5:4507/18/2017 7: 02am Lymphocytes (%) (Auto) 16.9 % L 18.0-39.1 07/18/2017 5:4507/18/2017 7 :02am Monocytes (%) (Auto) 9.5 % 4.4-11.3 07/18/2017 5:45am 07/18/2017 7: 02am Eosinophils (%) (Auto) 3.1 % 0.0-6.0 07/18/2017 5:4507/18/2017 7: 02am Basophils (%) (Auto) 0.2 % 0.0-1.0 07/18/2017 5:4507/18/2017 7:02am IM GRANULOCYTES % 0.2 % 0.0-1.0 07/18/2017 5:4507/18/2017 7:02am Neutrophils # (Auto) 6.3 2.1-6.9 07/18/2017 5:45am 07/18/2017 7:02am Lymphocytes # (Auto) 1.5 1.0-3.2 07/18/2017 5:4507/18/2017 7:02am Monocytes # (Auto) 0.9 H 0.2-0.8 07/18/2017 5:45am 07/18/2017 7:02am Eosinophils # (Auto) 0.3 0.0-0.4 07/18/2017 5:4507/18/2017 7:02am Basophils # (Auto) 0.0 0.0-0.1 07/18/2017 5:45am 07/18/2017 7:02am Absolute Immature Granulocyte (auto 0.02 x10e3/uL 0-0.1 07/18/2017 5: 45am 07/18/2017 7:02am Sodium Level 136 mmol/L 136-145 07/18/2017 5:45am 07/18/2017 7:22am Potassium Level 3.6 mmol/L 3.5-5.1 07/18/2017 5:45am 07/18/2017 7:22am Chloride Level 104 mmol/L 98-107 07/18/2017 5:45am 07/18/2017 7:22am Carbon Dioxide Level 26 mmol/L 22-29 07/18/2017 5:45am 07/18/2017 7: 22am Anion Gap 9.6 mmol/L 8-16 07/18/2017 5:45am 07/18/2017 7:22am Blood Urea Nitrogen 8 mg/dL 7-07/18/2017 5:45am 07/18/2017 7:22am Creatinine 0.77 mg/dL 0.72-1.25 07/18/2017 5:45am 07/18/2017 7:22am BUN/Creatinine Ratio 10 6-07/18/2017 5:45am 07/18/2017 7:22am Estimat Glomerular Filtration Rate > 60 ML/MIN 60- 07/18/2017 5:45am 7:22am Ranges were taken from the National Kidney Disease Education Program and the National Kid[employer] Foundation literature. Reference ranges: 60 or greater: Normal 16-59 (for 3 consecutive months): Chronic kidney disease 15 or less: Kidney failure Glucose Level 101 mg/dL 74-118 07/18/2017 5:45am 07/18/2017 7:22am Calcium Level 8.4 mg/dL 8.4-10.2 07/18/2017 5:45am 07/18/2017 7:22am Bedside Glucose 112 mg/dL 70-120 07/18/2017 4:12pm 07/18/2017 6:58pm Meter ID: [id number] Procedures Procedure Status Date Provider(s) RESECTION OF LARGE INTESTINE, OPEN APPROACH Completed 11/30/16 MARJ GOLD MD RESECTION OF APPENDIX, OPEN APPROACH Completed 11/30/16 MARJ GOLD MD BYPASS DESCENDING COLON TO CUTANEOUS, OPEN APPROACH Completed 11/30/16 MARJ GOLD MD IRRIGATE OF PERITON CAV USING IRRIGAT, PERC APPROACH, DIAGN Completed MARJ GOLD MD DIAGNOSTIC COLONOSCOPY Completed 05/15/17 ELA OLIVARES MD Exploratory laparotomy Completed 07/15/17 MARJ GOLD MD Low anterior resection of colon Completed 07/15/17 MARJ GOLD MD Computed tomography of abdomen and pelvis with contrast Active 11/22/16 EMERALD CORDERO DO Computed tomography of abdomen and pelvis with contrast Active 11/26/[address] extremity upper wo contrast Active 06/21/17 EMERALD CORDERO DO Encounters Encounter Location Arrival/Admit Date Discharge/Depart Date Attending Provider Discharged [facility]patient [facility] 07/15/17 4:07pm 07/22/17 6:34pm MARJ GOLD MD Registered Clinic [facility] 06/21/17 2:42pm EMERALD CORDERO DO Registered Surgical Day Care [facility] 05/15/17 8:37am ELA OLIVARES MD Discharged Inpatient [facility] 11/22/16 9:38pm 12/07/16 5:28pm IVAN OLIVARES MD Registered Clinic [facility] 11/22/16 4:04pm EMERALD CORDERO DO
[2017-07-23] MEDS ORDERED: PANTOPRAZOLE 40 MG 10ML VIAL IV STA (01:41)
[2017-07-23] MEDS ORDERED: SODIUM CHLORIDE 0.9% 1000ML 1,000 ML IV STA (01:41)
[2017-07-23] MEDS ORDERED: ONDANSETRON HCL INJ 2 MG/ML VIAL IV STA (01:41)
[2017-07-23] MEDS ORDERED: MORPHINE SULFATE 2 MG/ML SYR IV STA (01:41)
[2017-07-23] MEDS ORDERED: ACETAMINOPHEN 1000 MG/100 ML IV STA (01:41)
[2017-07-23] MEDS ORDERED: HYDROMORPHONE 1MG/1ML INJ IV STA (01:44)
[2017-07-23] MEDS ORDERED: PIPER-TAZ 3.375 GM 50 ML IV STA (01:50)
[2017-07-23] MEDS ORDERED: VANCOMYCIN 1GM/NS 250 ML 250 ML IV STA (01:50)
[2017-07-23] MEDS ORDERED: VANCOMYCIN 1GM/NS 250 ML 250 ML ONE (01:51)
[2017-07-23] MEDS ORDERED: PIPER-TAZ 3.375 GM 50 ML ONE (01:51)
[2017-07-23 02:01] LABS: BASOPHILS % 0.2 % (0.0-1.0); EOSINOPHILS # (AUTO) 0.1 (0.0-0.4); EOSINOPHILS % 0.2 % (0.0-6.0); HEMATOCRIT 31.3 % (38.2-49.6); HEMOGLOBIN 11.4 g/dL (14.0-18.0); LYMPHOCYTES # (AUTO) 1.6 (1.0-3.2); LYMPHOCYTES % 7.7 % (18.0-39.1); MEAN CORPUSCULAR HEMOGLOBIN 31.8 pg (28-32); MEAN CORPUSCULAR HGB CONC 36.4 g/dL (31-35); MEAN CORPUSCULAR VOLUME 87.4 fL (81-99); MONOCYTES # (AUTO) 1.6 (0.2-0.8); MONOCYTES % 7.8 % (4.4-11.3); NEUTROPHILS % 83.5 % (38.7-80.0); PLATELET COUNT 465 x10e3/uL (140-360); RED BLOOD COUNT 3.58 x10e6/uL (4.3-5.7); RED CELL DISTRIBUTION WIDTH 12.4 % (11.7-14.4)
[2017-07-23] MEDS ORDERED: DIATRIZOATE MEGL/DIATRIZOA SOD 30 ML BTL PO ONE (02:01)
[2017-07-23 02:08] LABS: INR 1.22; PROTHROMBIN TIME 14.5 seconds (11.9-14.5)
[2017-07-23 02:09] LABS: PARTIAL THROMBOPLASTIN TIME 33.2 seconds (23.8-35.5)
[2017-07-23 02:15] LABS: ALANINE AMINOTRANSFERASE 39 IU/L (0-55); ALBUMIN 3.5 g/dL (3.5-5.0); ALKALINE PHOSPHATASE 90 IU/L (40-150); AMYLASE 152 U/L (25-125); ANION GAP 15.1 mmol/L (8-16); BLOOD UREA NITROGEN 13 mg/dL (7-26); BUN/CREATININE RATIO 11 (6-25); CARBON DIOXIDE 21 mmol/L (22-29); CHLORIDE 104 mmol/L (98-107); CREATINE KINASE 116 IU/L (30-200); CREATININE, SERUM 1.15 mg/dL (0.72-1.25); EST GLOMERULAR FILTRATION RATE > 60 ML/MIN (60-); GLUCOSE 121 mg/dL (74-118); LIPASE 18 U/L (8-78); MAGNESIUM 1.4 MG/DL (1.3-2.1); POTASSIUM 3.1 mmol/L (3.5-5.1); SODIUM 137 mmol/L (136-145)
[2017-07-23] MEDS ORDERED: SODIUM CHLORIDE 0.9% 50ML 50 ML ONE (02:28)
[2017-07-23] MEDS ORDERED: IOPAMIDOL 370 MG/ML 200 ML INFUS..BTL INJ ONE (02:28)
--- NOTE | 2017-07-23 02:33 | Diagnostic Imaging Report ---
EXAM: CHEST 2 VIEWS, PA and lateral INDICATION: Right-sided abdominal pain COMPARISON: None FINDINGS: LINES/TUBES: None LUNGS: No consolidations or edema. PLEURA: No effusions or pneumothorax. HEART AND MEDIASTINUM: Normal size and contour. BONES AND SOFT TISSUES: Free air underneath the hemidiaphragms. IMPRESSION: Free air underneath the hemidiaphragms. Please correlate with timing of recent colon surgery. No acute cardiopulmonary abnormality. Signed by: Dr. Becky Mcfarland M.D. on 07/23/2017 2:30 AM
--- NOTE | 2017-07-23 02:36 | Diagnostic Imaging Report ---
EXAM: ABDOMEN COMP INCL UPR or DECUB, 2 views INDICATION: Abdominal pain, recent colon resection COMPARISON: None FINDINGS: LINES/TUBES: None BOWEL PATTERN: Nonspecific prominent air-filled loop of transverse colon. No dilated small bowel loops. SOFT TISSUES: Surgical sutures across the lower midline abdomen and left lower quadrant. LUNG BASES: Free air underneath the hemidiaphragms. BONES: No acute findings. IMPRESSION: Free air underneath the hemidiaphragms. Please correlate with timing of recent colon resection. Nonspecific prominent air-filled loop of transverse colon. No dilated small bowel loops. Signed by: Dr. Becky Mcfarland M.D. on 07/23/2017 2:33 AM
[2017-07-23] MEDS ORDERED: D5.45%NS/KCL 20MEQ 1,000 ML IV SCH (02:56)
[2017-07-23] MEDS ORDERED: HYDROMORPHONE 1MG/1ML INJ IV PRN (03:00)
[2017-07-23] MEDS ORDERED: KCL 20MEQ/.9 SOD CHL 1,000 ML IV ONE ×2 (03:12→03:15)
--- NOTE | 2017-07-23 03:13 | Diagnostic Imaging Report ---
EXAM: CT ABDOMEN AND PELVIS with IV CONTRAST DATE: 07/23/2017 1:52 AM Time stamp on Exam: 0242 hours INDICATION: History of colon resection one week ago COMPARISON: None TECHNIQUE: The abdomen and pelvis were scanned using a multidetector helical scanner. Coronal and sagittal reformations were obtained. Routine protocol performed. IV Contrast: 100 cc Isovue 370 Oral Contrast: Gastrografin CTDIvol has been reviewed. It is below the limits set by the Radiation Protocol Committee (RPC). FINDINGS: LOWER THORAX: Mild bibasilar atelectasis. Partially visualized 3.8 cm well-circumscribed cyst in the right anterior mediastinum, likely a pericardial cyst or bronchogenic cyst. LIVER: Incompletely characterized 1.3 cm hypodensity in the right lobe of the liver (series 2, image 29). BILIARY: The gallbladder is unremarkable. No ductal dilation. SPLEEN: No masses PANCREAS: No masses ADRENALS: No nodules KIDNEYS: Symmetric perfusion. No enhancing masses. No hydronephrosis. GI TRACT: Surgical sutures around the sigmoid colon. Adjacent small foci of air. Mild air distention of the transverse colon. VESSELS: Unremarkable PERITONEUM/RETROPERITONEUM: Small to moderate amount of free fluid and air. LYMPH NODES: No lymphadenopathy REPRODUCTIVE ORGANS: Unremarkable BLADDER: Unremarkable SOFT TISSUES: Anterior abdominal surgical leah. Expected postsurgical changes of recent abdominal surgery. BONES: No suspicious bone lesions. IMPRESSION: Surgical changes of recent colon surgery with small to moderate amount of free fluid and air in the abdomen and pelvis, probably more than expected for being one week post-op. The administered Gastrografin has only reached the proximal small bowel. Consider repeat CT of the abdomen and pelvis after an additional 4 hours to reassess for possible leak versus continued follow-up by upright KUB. Signed by: Dr. Becky Mcfarland M.D. on 07/23/2017 3:09 AM
[2017-07-23] MEDS: METRONIDAZOLE 500MG/NS 100ML 100 ML IV SCH ×5 (03:22→22:16)
[2017-07-23 03:34] LABS: AMPHETAMINES SCREEN,URINE NEGATIVE (NEGATIVE); BENZODIAZEPINES SCREEN,URINE NEGATIVE (NEGATIVE); CLARITY,URINE CLEAR (CLEAR); COLOR,URINE YELLOW (YELLOW); PHENCYCLIDINE SCREEN,URINE NEGATIVE (NEGATIVE)
[2017-07-23 03:35] LABS: BILIRUBIN,URINE NEGATIVE (NEGATIVE); KETONES,URINE NEGATIVE (NEGATIVE); LEUKOCYTE ESTERASE ,URINE NEGATIVE (NEGATIVE); NITRITE,URINE NEGATIVE (NEGATIVE); PROTEIN,URINE DIPSTICK NEGATIVE (NEGATIVE); URINE UROBILINOGEN 0.2 mg/dL (0.2 - 1)
[2017-07-23 03:36] LABS: BACTERIA,URINE RARE /HPF; EPITHELIAL CELLS,URINE RARE /LPF; WBC,URINE (MAN) 0-5 /HPF (0-5)
[2017-07-23 03:42] LABS: BAND NEUTROPHILS % (MANUAL) 4 %; LYMPHOCYTES % (MANUAL) 8 % (19-48); MONOCYTES % (MANUAL) 6 % (3.4-9.0); NEUTROPHILS % (MANUAL) 82 % (40-74); PLATELET ESTIMATE MARKEDLY INCREASED; PLATELET MORPHOLOGY COMMENT NORMAL
[2017-07-23] MEDS ORDERED: METRONIDAZOLE 500MG/NS 100ML 100 ML IV ONE (05:33)
[2017-07-23] MEDS: PIPER-TAZ 3.375 GM 50 ML IV SCH ×5 (08:00→23:44)
[2017-07-23] MEDS ORDERED: PROMETHAZINE HCL (IM) 25 MG/ML VIAL IV PRN (08:30)
[2017-07-23] MEDS ORDERED: NALOXONE HCL INJ 0.4 MG/ML AMP IV PRN (08:30)
[2017-07-23] MEDS: SODIUM CHLORIDE 0.9% 250ML IRRIG IR SCH ×4 (08:30→21:39)
[2017-07-23] MEDS ORDERED: HYDROMORPHONE 1MG/1ML INJ ONE (08:49)
[2017-07-23] MEDS ORDERED: HYDROMORPHONE 0.2MG/ML-SOD CHL 30ML PCA SYRINGE IV ONE (08:49)
[2017-07-23] MEDS: PANTOPRAZOLE 40 MG 10ML VIAL IV SCH (09:00)
[2017-07-23] MEDS: MEROPENEM 1 GM VIAL IV SCH ×2 (09:00→17:35)
--- NOTE | 2017-07-23 09:16 | Operative Report ---
DATE OF PROCEDURE: July 23, 2017 PREOPERATIVE DIAGNOSIS: Acute abdomen. Rule out anastomotic leak. POSTOPERATIVE DIAGNOSIS: Acute abdomen with peritonitis secondary to anastomotic leak. OPERATIONS PERFORMED 1. Exploratory laparotomy. 2. Repair of colonic anastomotic leak. 3. Peritoneal lavage and creation of end- transverse colon ostomy. ANESTHESIA: General. COMPLICATIONS: None. ESTIMATED BLOOD LOSS: 150 mL. DESCRIPTION OF PROCEDURE: With the patient lying in bed in the supine position under good general endotracheal anesthesia, the abdomen was prepped with Betadine solution and draped in the usual manner. The old leah were removed, and the fascial and peritoneal sutures were removed and the abdomen was entered. Upon entering the abdominal cavity, some mirky fluid was encountered, which was aspirated. This was not purulent or fecal, but was just dark brownish fluid. Exploration at this point revealed the omentum to be totally plastered in the pelvis in the area of the anastomosis. There was some distention of the transverse colon present, and there was some loops of small bowel that were also stuck down in the pelvis. The omentum was then slowly and carefully from the area of anastomosis. Then at this point, once we were able to mobilize the omentum off of the anastomosis, we found that there was a small opening anteriorly at the colorectal anastomosis with some leakage of fecal material in that area once the omentum was removed from the top. Further examination at this point revealed there were 2 leah right where the hole was that were not completely closed. These were removed. All of the fluid was then aspirated from the pelvis. The rest of the abdomen was then inspected. All of the few loculations that were present were taken down. The whole abdomen was then copiously irrigated and hemostasis was ascertained. There was no other sign of any other abnormality. The colon itself appeared to be viable. We decided at this point that rather than bringing a colostomy by dividing the colon at the level of the anastomosis, that would require going back into the deep pelvis in the future to close the ostomy, and that would be rather difficult to do at a later date. We decided to go ahead and do a transverse colostomy and close the perforation of the anastomosis. The opening was then closed with interrupted sutures of 2-0 silk. This gave us a complete closure. There was no further spillage at this point. The abdomen was then again copiously irrigated with many liters of saline solution, and all the effluent was aspirated. Once this was done, the transverse colon was then mobilized and divided with an application of the LOUIS-75 stapler about the level of the midtransverse colon. An opening was then made in the right upper quadrant to allow for the colostomy placement by creating a cruciate incision in the rectus muscle. The proximal transverse colon was brought out without any tension at this level. Some of the omentum had been stuck in the pelvis was then resected and debrided. There was still plenty of omentum left to place it back over the area of the repair. A 10 flat Shantanu-Ortega drain was then brought out through a right lower quadrant incision and placed in the pelvis. The abdomen was then closed in layers. Peritoneum was closed with a running suture of #1 Vicryl. The midline fascia was closed with a running suture of #1 PDS. A 0.25-inch Rojas drain was left in the subcutaneous tissue and the skin was closed with clips. The colostomy was then matured with interrupted sutures of 3-0 Vicryl. Dressings and an ostomy appliance were placed. The sponge, lap and needle count was correct. Patient tolerated the procedure well, and returned to the recovery room in stable condition. Job#: [id number] SANG
[2017-07-23 10:25] LABS: CREATINE KINASE MB 2.3 ng/mL (0-5.0)
[2017-07-23] MEDS ORDERED: PANTOPRAZOLE 40 MG 10ML VIAL IV SCH (13:00)
[2017-07-23] MEDS: DEXTROSE 5%/LACTATED RINGERS 1,000 ML IV SCH ×3 (13:21→23:35)
[2017-07-23] MEDS ORDERED: MEROPENEM 1GM 100 ML IV SCH (14:00)
[2017-07-23] MEDS ORDERED: NEOSTIGMINE 5 MG/5ML SYR ONE (14:19)
[2017-07-23] MEDS ORDERED: DEXAMETHASONE SOD PHOS INJ 4 MG/ML VIAL ONE (14:19)
[2017-07-23] MEDS ORDERED: ROCURONIUM BROMIDE 10 MG/ML 5ML VIAL ONE (14:19)
[2017-07-23] MEDS ORDERED: LIDOCAINE HCL 2% LOCAL INJ 5 ML SDV VIAL INJ ONE (14:19)
[2017-07-23] MEDS ORDERED: PROPOFOL IV EMULSION 10 MG/ML 20 ML VIAL ONE (14:19)
[2017-07-23] MEDS ORDERED: GLYCOPYRROLATE INJ 1MG/ 5 ML SYR ONE (14:19)
[2017-07-23] MEDS ORDERED: ACETAMINOPHEN 1000 MG/100 ML IV ONE (14:19)
[2017-07-23] MEDS ORDERED: SEVOFLURANE INHAL SOLN 250 ML PEN BTL ONE (14:19)
[2017-07-23] MEDS ORDERED: ONDANSETRON HCL INJ 2 MG/ML VIAL ONE (14:19)
[2017-07-23] MEDS ORDERED: EPHEDRINE SULFATE INJ 50 MG/10 ML SYR ONE (14:19)
[2017-07-23 17:26] LABS: CREATINE KINASE 328 IU/L (30-200)
[2017-07-23] MEDS ORDERED: FENTANYL CITRATE/PF 100MCG/2 ML INJ ONE (17:27)
[2017-07-23] MEDS ORDERED: MORPHINE SULFATE INJ 10 MG/ML ONE (17:27)
[2017-07-23] MEDS: HYDROMORPHONE 1MG/1ML INJ IV PRN (18:29)
[2017-07-23] MEDS: HYDROMORPHONE 0.2MG/ML-SOD CHL 30ML PCA SYRINGE IV PRN (19:35)
[2017-07-23] MEDS: ACETAMINOPHEN 1000 MG/100 ML IV PRN (19:43)
[2017-07-23] MEDS ORDERED: HYDROMORPHONE 1MG/1ML INJ IV ONE (20:45)
[2017-07-24] VITALS (88 sets, daily range): BP systolic 119–181; BP diastolic 65–125
[2017-07-24] MEDS: SODIUM CHLORIDE 0.9% 250ML IRRIG IR SCH ×6 (00:30→20:30)
[2017-07-24] MEDS: HYDROMORPHONE 0.2MG/ML-SOD CHL 30ML PCA SYRINGE IV PRN ×3 (01:23→14:45)
[2017-07-24] MEDS: MEROPENEM 1 GM VIAL IV SCH ×3 (01:36→16:47)
[2017-07-24] MEDS: METRONIDAZOLE 500MG/NS 100ML 100 ML IV SCH ×4 (03:40→21:00)
[2017-07-24] MEDS: ACETAMINOPHEN 1000 MG/100 ML IV PRN (04:45)
[2017-07-24 05:51] LABS: BASOPHILS % 0.1 % (0.0-1.0); EOSINOPHILS % 0.2 % (0.0-6.0); HEMATOCRIT 26.9 % (38.2-49.6); HEMOGLOBIN 9.3 g/dL (14.0-18.0); LYMPHOCYTES # (AUTO) 0.9 (1.0-3.2); MEAN CORPUSCULAR HEMOGLOBIN 31.2 pg (28-32); MEAN CORPUSCULAR HGB CONC 34.6 g/dL (31-35); MEAN CORPUSCULAR VOLUME 90.3 fL (81-99); MONOCYTES # (AUTO) 1.6 (0.2-0.8); MONOCYTES % 9.2 % (4.4-11.3); NEUTROPHILS # (AUTO) 14.7 (2.1-6.9); PLATELET COUNT 404 x10e3/uL (140-360); RED BLOOD COUNT 2.98 x10e6/uL (4.3-5.7); RED CELL DISTRIBUTION WIDTH 13.2 % (11.7-14.4)
[2017-07-24] MEDS: PIPER-TAZ 3.375 GM 50 ML IV SCH ×3 (06:09→18:27)
[2017-07-24 06:12] LABS: ALANINE AMINOTRANSFERASE 24 IU/L (0-55); ALBUMIN 2.2 g/dL (3.5-5.0); ALBUMIN/GLOBULIN RATIO 0.7 (0.8-2.0); ALKALINE PHOSPHATASE 54 IU/L (40-150); AMYLASE 46 U/L (25-125); ANION GAP 10.5 mmol/L (8-16); BLOOD UREA NITROGEN 14 mg/dL (7-26); BUN/CREATININE RATIO 18 (6-25); CALCIUM 7.9 mg/dL (8.4-10.2); CARBON DIOXIDE 23 mmol/L (22-29); CHLORIDE 108 mmol/L (98-107); CREATININE, SERUM 0.78 mg/dL (0.72-1.25); EST GLOMERULAR FILTRATION RATE > 60 ML/MIN (60-); GLUCOSE 128 mg/dL (74-118); LIPASE 5 U/L (8-78); POTASSIUM 3.5 mmol/L (3.5-5.1); SODIUM 138 mmol/L (136-145)
[2017-07-24] MEDS: HYDROMORPHONE 1MG/1ML INJ IV PRN ×2 (08:50→13:44)
[2017-07-24] MEDS: PANTOPRAZOLE 40 MG 10ML VIAL IV SCH (09:50)
[2017-07-24] MEDS: PROMETHAZINE 12.5MG/ NACL 0.9% 50 ML IV PRN ×2 (10:00→18:50)
[2017-07-24] MEDS: DEXTROSE 5%/LACTATED RINGERS 1,000 ML IV SCH ×2 (11:30→16:47)
[2017-07-24] MEDS ORDERED: LEVALBUTEROL HCL SOLN NEBU 0.63 MG/3 ML NEB INH ONE (13:15)
[2017-07-24] MEDS ORDERED: ACETYLCYSTEINE 20% INHAL SOLN 30 ML VIAL INH ONE (13:15)
[2017-07-24] MEDS ORDERED: ACETYLCYSTEINE 200 MG/ML 4ML VIAL INH NR (13:45)
[2017-07-24] MEDS ORDERED: ACETAMINOPHEN 1000 MG/100 ML IV PRN (19:15)
[2017-07-25] VITALS (85 sets, daily range): BP systolic 97–173; BP diastolic 61–125
[2017-07-25] MEDS: DEXTROSE 5%/LACTATED RINGERS 1,000 ML IV SCH ×3 (00:21→20:17)
[2017-07-25] MEDS: SODIUM CHLORIDE 0.9% 250ML IRRIG IR SCH ×6 (00:30→20:17)
[2017-07-25] MEDS: MEROPENEM 1 GM VIAL IV SCH ×3 (01:00→16:41)
[2017-07-25] MEDS: METRONIDAZOLE 500MG/NS 100ML 100 ML IV SCH ×4 (03:00→20:18)
[2017-07-25] MEDS: PIPER-TAZ 3.375 GM 50 ML IV SCH ×4 (06:00→16:41)
[2017-07-25 07:19] LABS: BASOPHILS % 0.1 % (0.0-1.0); EOSINOPHILS # (AUTO) 0.2 (0.0-0.4); EOSINOPHILS % 1.1 % (0.0-6.0); HEMATOCRIT 23.2 % (38.2-49.6); HEMOGLOBIN 8.1 g/dL (14.0-18.0); LYMPHOCYTES # (AUTO) 0.9 (1.0-3.2); LYMPHOCYTES % 5.1 % (18.0-39.1); MEAN CORPUSCULAR HEMOGLOBIN 31.5 pg (28-32); MEAN CORPUSCULAR HGB CONC 34.9 g/dL (31-35); MEAN CORPUSCULAR VOLUME 90.3 fL (81-99); MONOCYTES # (AUTO) 1.3 (0.2-0.8); MONOCYTES % 7.5 % (4.4-11.3); NEUTROPHILS # (AUTO) 14.5 (2.1-6.9); NEUTROPHILS % 85.4 % (38.7-80.0); PLATELET COUNT 349 x10e3/uL (140-360); RED BLOOD COUNT 2.57 x10e6/uL (4.3-5.7); RED CELL DISTRIBUTION WIDTH 13.1 % (11.7-14.4)
[2017-07-25] MEDS: PANTOPRAZOLE 40 MG 10ML VIAL IV SCH (08:58)
[2017-07-25] MEDS: KETOROLAC TROMETHAMINE 30 MG/ML VIAL IV PRN ×2 (09:43→22:06)
[2017-07-25] MEDS: PROMETHAZINE 12.5MG/ NACL 0.9% 50 ML IV PRN ×3 (10:00→22:06)
[2017-07-25] MEDS: HYDROMORPHONE 0.2MG/ML-SOD CHL 30ML PCA SYRINGE IV PRN (11:48)
[2017-07-26] VITALS (9 sets, daily range): BP systolic 149–184; BP diastolic 84–92
[2017-07-26] MEDS: DEXTROSE 5%/LACTATED RINGERS 1,000 ML IV SCH ×3 (00:21→16:21)
[2017-07-26] MEDS: SODIUM CHLORIDE 0.9% 250ML IRRIG IR SCH ×6 (00:22→20:31)
[2017-07-26] MEDS: PIPER-TAZ 3.375 GM 50 ML IV SCH ×4 (00:43→16:55)
[2017-07-26] MEDS: MEROPENEM 1 GM VIAL IV SCH ×3 (00:43→16:55)
[2017-07-26] MEDS: ONDANSETRON HCL INJ 2 MG/ML VIAL IV PRN ×2 (00:43→06:13)
[2017-07-26] MEDS: HYDROMORPHONE 0.2MG/ML-SOD CHL 30ML PCA SYRINGE IV PRN ×3 (02:20→20:08)
[2017-07-26] MEDS: METRONIDAZOLE 500MG/NS 100ML 100 ML IV SCH ×4 (03:05→20:31)
[2017-07-26] MEDS ORDERED: SODIUM CHLORIDE 0.9% 250ML 250 ML ONE (03:08)
[2017-07-26 06:22] LABS: BASOPHILS % 0.2 % (0.0-1.0); EOSINOPHILS # (AUTO) 0.3 (0.0-0.4); EOSINOPHILS % 2.6 % (0.0-6.0); HEMATOCRIT 22.7 % (38.2-49.6); HEMOGLOBIN 7.7 g/dL (14.0-18.0); LYMPHOCYTES # (AUTO) 0.9 (1.0-3.2); MEAN CORPUSCULAR HGB CONC 33.9 g/dL (31-35); MEAN CORPUSCULAR VOLUME 91.5 fL (81-99); MONOCYTES # (AUTO) 1.2 (0.2-0.8); MONOCYTES % 9.7 % (4.4-11.3); NEUTROPHILS # (AUTO) 9.5 (2.1-6.9); NEUTROPHILS % 78.2 % (38.7-80.0); PLATELET COUNT 364 x10e3/uL (140-360); RED BLOOD COUNT 2.48 x10e6/uL (4.3-5.7); RED CELL DISTRIBUTION WIDTH 12.8 % (11.7-14.4)
[2017-07-26] MEDS ORDERED: ACETAMINOPHEN 1000 MG/100 ML IV PRN (08:00)
[2017-07-26 08:13] LABS: EOSINOPHILS % (MANUAL) 2 % (0-7); LYMPHOCYTES % (MANUAL) 5 % (19-48); MONOCYTES % (MANUAL) 5 % (3.4-9.0); NEUTROPHILS % (MANUAL) 88 % (40-74); PLATELET ESTIMATE ADEQUATE; PLATELET MORPHOLOGY COMMENT NORMAL; RBC MORPHOLOGY COMMENT NORMAL
[2017-07-26] MEDS: PANTOPRAZOLE 40 MG 10ML VIAL IV SCH (08:42)
[2017-07-26] MEDS: PROMETHAZINE 12.5MG/ NACL 0.9% 50 ML IV PRN ×2 (09:24→13:14)
[2017-07-26] MEDS: KETOROLAC TROMETHAMINE 30 MG/ML VIAL IV PRN ×2 (12:19→22:03)
[2017-07-27] VITALS (7 sets, daily range): BP systolic 149–162; BP diastolic 81–93
[2017-07-27] MEDS: PIPER-TAZ 3.375 GM 50 ML IV SCH ×4 (00:29→17:23)
[2017-07-27] MEDS: DEXTROSE 5%/LACTATED RINGERS 1,000 ML IV SCH ×3 (00:29→19:00)
[2017-07-27] MEDS: SODIUM CHLORIDE 0.9% 250ML IRRIG IR SCH (00:30)
[2017-07-27] MEDS: MEROPENEM 1 GM VIAL IV SCH ×3 (02:00→16:51)
[2017-07-27] MEDS: METRONIDAZOLE 500MG/NS 100ML 100 ML IV SCH ×4 (02:30→21:41)
[2017-07-27] MEDS: HYDROMORPHONE 0.2MG/ML-SOD CHL 30ML PCA SYRINGE IV PRN (08:39)
[2017-07-27] MEDS: PANTOPRAZOLE 40 MG 10ML VIAL IV SCH (08:39)
[2017-07-27] MEDS: KETOROLAC TROMETHAMINE 30 MG/ML VIAL IV PRN ×2 (10:00→16:51)
[2017-07-27] MEDS: HYDROMORPHONE 1MG/1ML INJ IV PRN ×2 (13:26→19:40)
[2017-07-27 19:02] LABS: BASOPHILS % 0.3 % (0.0-1.0); EOSINOPHILS # (AUTO) 0.2 (0.0-0.4); EOSINOPHILS % 3.1 % (0.0-6.0); HEMATOCRIT 22.9 % (38.2-49.6); HEMOGLOBIN 7.4 g/dL (14.0-18.0); LYMPHOCYTES % 13.6 % (18.0-39.1); MEAN CORPUSCULAR HEMOGLOBIN 30.6 pg (28-32); MEAN CORPUSCULAR HGB CONC 32.3 g/dL (31-35); MEAN CORPUSCULAR VOLUME 94.6 fL (81-99); MONOCYTES # (AUTO) 0.9 (0.2-0.8); MONOCYTES % 12.1 % (4.4-11.3); NEUTROPHILS % 68.5 % (38.7-80.0); PLATELET COUNT 199 x10e3/uL (140-360); RED BLOOD COUNT 2.42 x10e6/uL (4.3-5.7)
[2017-07-27] MEDS: ONDANSETRON HCL INJ 2 MG/ML VIAL IV PRN (19:19)
[2017-07-27 20:48] LABS: BAND NEUTROPHILS % (MANUAL) 3 %; EOSINOPHILS % (MANUAL) 3 % (0-7); LYMPHOCYTES % (MANUAL) 15 % (19-48); MONOCYTES % (MANUAL) 9 % (3.4-9.0); NEUTROPHILS % (MANUAL) 68 % (40-74)
[2017-07-27 20:49] LABS: PLATELET ESTIMATE ADEQUATE; PLATELET MORPHOLOGY COMMENT NORMAL
[2017-07-27 20:51] LABS: ANISOCYTOSIS MODERATE; RBC MORPHOLOGY COMMENT ABNORMAL
[2017-07-27 20:53] LABS: HYPOCHROMASIA SLIGHT
[2017-07-27 20:54] LABS: POIKILOCYTOSIS SLIG
[2017-07-28] VITALS (8 sets, daily range): BP systolic 151–164; BP diastolic 69–91
[2017-07-28] MEDS: PIPER-TAZ 3.375 GM 50 ML IV SCH ×4 (00:19→18:10)
[2017-07-28] MEDS: HYDROMORPHONE 1MG/1ML INJ IV PRN ×7 (00:24→23:42)
[2017-07-28] MEDS: MEROPENEM 1 GM VIAL IV SCH ×3 (01:00→18:10)
[2017-07-28] MEDS: KETOROLAC TROMETHAMINE 30 MG/ML VIAL IV PRN ×3 (01:20→18:36)
[2017-07-28] MEDS: METRONIDAZOLE 500MG/NS 100ML 100 ML IV SCH ×4 (03:17→20:23)
[2017-07-28 06:27] LABS: BASOPHILS % 0.2 % (0.0-1.0); EOSINOPHILS # (AUTO) 0.3 (0.0-0.4); EOSINOPHILS % 3.7 % (0.0-6.0); HEMOGLOBIN 7.2 g/dL (14.0-18.0); LYMPHOCYTES # (AUTO) 1.4 (1.0-3.2); LYMPHOCYTES % 16.8 % (18.0-39.1); MEAN CORPUSCULAR HEMOGLOBIN 30.3 pg (28-32); MEAN CORPUSCULAR HGB CONC 34.4 g/dL (31-35); MEAN CORPUSCULAR VOLUME 87.8 fL (81-99); NEUTROPHILS # (AUTO) 5.3 (2.1-6.9); NEUTROPHILS % 64.8 % (38.7-80.0); PLATELET COUNT 400 x10e3/uL (140-360); RED BLOOD COUNT 2.38 x10e6/uL (4.3-5.7); RED CELL DISTRIBUTION WIDTH 12.9 % (11.7-14.4)
[2017-07-28 06:32] LABS: HEMATOCRIT 20.9 % (38.2-49.6)
[2017-07-28 06:55] LABS: ANION GAP 11.5 mmol/L (8-16); BLOOD UREA NITROGEN 11 mg/dL (7-26); BUN/CREATININE RATIO 17 (6-25); CALCIUM 7.9 mg/dL (8.4-10.2); CARBON DIOXIDE 24 mmol/L (22-29); CHLORIDE 107 mmol/L (98-107); CREATININE, SERUM 0.64 mg/dL (0.72-1.25); EST GLOMERULAR FILTRATION RATE > 60 ML/MIN (60-); GLUCOSE 93 mg/dL (74-118); POTASSIUM 3.5 mmol/L (3.5-5.1); SODIUM 139 mmol/L (136-145)
[2017-07-28] MEDS: PANTOPRAZOLE 40 MG 10ML VIAL IV SCH (09:00)
[2017-07-28 09:10] LABS: BAND NEUTROPHILS % (MANUAL) 1 %; EOSINOPHILS % (MANUAL) 2 % (0-7); LYMPHOCYTES % (MANUAL) 17 % (19-48); MONOCYTES % (MANUAL) 10 % (3.4-9.0); NEUTROPHILS % (MANUAL) 70 % (40-74)
[2017-07-28 09:11] LABS: PLATELET ESTIMATE SLIGHTLY INCREASED; PLATELET MORPHOLOGY COMMENT NORMAL; RBC MORPHOLOGY COMMENT NORMAL
[2017-07-28] MEDS: ONDANSETRON HCL INJ 2 MG/ML VIAL IV PRN ×2 (10:18→15:18)
[2017-07-28] MEDS ORDERED: SODIUM CHLORIDE 0.9% 250ML 250 ML IV NR (12:45)
[2017-07-28] MEDS ORDERED: FUROSEMIDE INJ 10 MG/ML 2 ML VIAL IV PRN (13:30)
[2017-07-28] MEDS: METOCLOPRAMIDE HCL 10 MG/2ML VIAL IV SCH (18:35)
[2017-07-28] MEDS: DEXTROSE 5%/LACTATED RINGERS 1,000 ML IV SCH (18:36)
[2017-07-28] MEDS ORDERED: SODIUM CHLORIDE 0.9% 250ML 250 ML ONE (23:24)
[2017-07-29] VITALS (7 sets, daily range): BP systolic 123–160; BP diastolic 78–95
[2017-07-29] MEDS: DEXTROSE 5%/LACTATED RINGERS 1,000 ML IV SCH (01:26)
[2017-07-29] MEDS: METOCLOPRAMIDE HCL 10 MG/2ML VIAL IV SCH ×4 (01:38→18:32)
[2017-07-29] MEDS: PIPER-TAZ 3.375 GM 50 ML IV SCH ×4 (01:38→18:32)
[2017-07-29] MEDS: MEROPENEM 1 GM VIAL IV SCH ×3 (01:39→15:50)
[2017-07-29] MEDS: METRONIDAZOLE 500MG/NS 100ML 100 ML IV SCH ×4 (06:31→21:29)
[2017-07-29] MEDS: PANTOPRAZOLE 40 MG 10ML VIAL IV SCH (08:52)
[2017-07-29] MEDS: KETOROLAC TROMETHAMINE 30 MG/ML VIAL IV PRN ×2 (08:52→18:32)
[2017-07-29 09:04] LABS: BASOPHILS % 0.3 % (0.0-1.0); EOSINOPHILS # (AUTO) 0.2 (0.0-0.4); HEMATOCRIT 29.6 % (38.2-49.6); HEMOGLOBIN 10.2 g/dL (14.0-18.0); LYMPHOCYTES # (AUTO) 1.3 (1.0-3.2); MEAN CORPUSCULAR HEMOGLOBIN 28.9 pg (28-32); MEAN CORPUSCULAR HGB CONC 34.5 g/dL (31-35); MEAN CORPUSCULAR VOLUME 83.9 fL (81-99); MONOCYTES # (AUTO) 0.8 (0.2-0.8); MONOCYTES % 7.5 % (4.4-11.3); NEUTROPHILS # (AUTO) 8.3 (2.1-6.9); NEUTROPHILS % 75.4 % (38.7-80.0); PLATELET COUNT 475 x10e3/uL (140-360); RED BLOOD COUNT 3.53 x10e6/uL (4.3-5.7); RED CELL DISTRIBUTION WIDTH 14.3 % (11.7-14.4)
[2017-07-29 09:19] LABS: ANION GAP 11.2 mmol/L (8-16); BLOOD UREA NITROGEN 9 mg/dL (7-26); BUN/CREATININE RATIO 13 (6-25); CARBON DIOXIDE 26 mmol/L (22-29); CHLORIDE 104 mmol/L (98-107); CREATININE, SERUM 0.72 mg/dL (0.72-1.25); EST GLOMERULAR FILTRATION RATE > 60 ML/MIN (60-); GLUCOSE 149 mg/dL (74-118); POTASSIUM 3.2 mmol/L (3.5-5.1); SODIUM 138 mmol/L (136-145)
[2017-07-29] MEDS: HYDROMORPHONE 1MG/1ML INJ IV PRN ×3 (10:00→23:21)
[2017-07-29] MEDS ORDERED: POTASSIUM CHLORIDE 20 MEQ TAB CR PO NR ×2 (10:45→13:00)
[2017-07-29 10:56] LABS: EOSINOPHILS % (MANUAL) 1 % (0-7); LYMPHOCYTES % (MANUAL) 18 % (19-48); MONOCYTES % (MANUAL) 6 % (3.4-9.0); NEUTROPHILS % (MANUAL) 73 % (40-74)
[2017-07-29 11:03] LABS: ANISOCYTOSIS SLIGHT; HYPOCHROMASIA SLIGHT; PLATELET ESTIMATE SLIGHTLY INCREASED; PLATELET MORPHOLOGY COMMENT NORMAL; RBC MORPHOLOGY COMMENT NORMAL; SMUDGE CELLS FEW
[2017-07-29] MEDS: ONDANSETRON HCL INJ 2 MG/ML VIAL IV PRN ×2 (15:49→20:08)
[2017-07-29] MEDS: HYDROCODONE/APAP 7.5MG-325MG 1 EA TAB PO PRN (15:50)
[2017-07-30] VITALS (7 sets, daily range): BP systolic 134–165; BP diastolic 76–97
[2017-07-30] MEDS: PIPER-TAZ 3.375 GM 50 ML IV SCH ×4 (01:00→16:41)
[2017-07-30] MEDS: METOCLOPRAMIDE HCL 10 MG/2ML VIAL IV SCH ×4 (01:00→16:41)
[2017-07-30] MEDS: MEROPENEM 1 GM VIAL IV SCH ×2 (01:00→07:39)
[2017-07-30] MEDS: HYDROCODONE/APAP 7.5MG-325MG 1 EA TAB PO PRN ×4 (01:14→22:46)
[2017-07-30] MEDS: METRONIDAZOLE 500MG/NS 100ML 100 ML IV SCH ×2 (03:17→07:39)
[2017-07-30] MEDS: HYDROMORPHONE 1MG/1ML INJ IV PRN ×4 (03:28→21:04)
[2017-07-30] MEDS: PANTOPRAZOLE 40 MG 10ML VIAL IV SCH (07:39)
[2017-07-30] MEDS: ONDANSETRON HCL INJ 2 MG/ML VIAL IV PRN (09:52)
[2017-07-31] VITALS: BP 135/80
[2017-07-31] MEDS: METOCLOPRAMIDE HCL 10 MG/2ML VIAL IV SCH ×4 (01:59→17:10)
[2017-07-31] MEDS: HYDROMORPHONE 1MG/1ML INJ IV PRN ×4 (02:00→17:10)
[2017-07-31] MEDS: ONDANSETRON HCL INJ 2 MG/ML VIAL IV PRN (02:00)
[2017-07-31 04:00] VITALS: BP 129/85
[2017-07-31 06:42] LABS: BASOPHILS % 0.3 % (0.0-1.0); EOSINOPHILS # (AUTO) 0.3 (0.0-0.4); EOSINOPHILS % 3.3 % (0.0-6.0); HEMATOCRIT 31.4 % (38.2-49.6); HEMOGLOBIN 10.5 g/dL (14.0-18.0); LYMPHOCYTES # (AUTO) 1.8 (1.0-3.2); LYMPHOCYTES % 19.9 % (18.0-39.1); MEAN CORPUSCULAR HEMOGLOBIN 28.7 pg (28-32); MEAN CORPUSCULAR HGB CONC 33.4 g/dL (31-35); MEAN CORPUSCULAR VOLUME 85.8 fL (81-99); MONOCYTES % 10.5 % (4.4-11.3); NEUTROPHILS # (AUTO) 5.8 (2.1-6.9); NEUTROPHILS % 63.7 % (38.7-80.0); PLATELET COUNT 578 x10e3/uL (140-360); RED BLOOD COUNT 3.66 x10e6/uL (4.3-5.7); RED CELL DISTRIBUTION WIDTH 14.2 % (11.7-14.4)
[2017-07-31 07:13] LABS: ANION GAP 11.8 mmol/L (8-16); BLOOD UREA NITROGEN 7 mg/dL (7-26); BUN/CREATININE RATIO 10 (6-25); CALCIUM 8.5 mg/dL (8.4-10.2); CARBON DIOXIDE 24 mmol/L (22-29); CHLORIDE 106 mmol/L (98-107); CREATININE, SERUM 0.67 mg/dL (0.72-1.25); EST GLOMERULAR FILTRATION RATE > 60 ML/MIN (60-); GLUCOSE 91 mg/dL (74-118); POTASSIUM 3.8 mmol/L (3.5-5.1); SODIUM 138 mmol/L (136-145)
[2017-07-31 07:50] LABS: EOSINOPHILS % (MANUAL) 6 % (0-7); LYMPHOCYTES % (MANUAL) 20 % (19-48); MONOCYTES % (MANUAL) 6 % (3.4-9.0); MYELOCYTES % (MANUAL) 1 % (0-0); NEUTROPHILS % (MANUAL) 63 % (40-74)
[2017-07-31 07:51] LABS: ANISOCYTOSIS SLIGHT; HOWELL-JOLLY BODIES FEW; HYPOCHROMASIA SLIGHT; RBC MORPHOLOGY COMMENT ABNORMAL
[2017-07-31 07:52] LABS: PLATELET ESTIMATE SLIGHTLY INCREASED
[2017-07-31 07:53] LABS: POIKILOCYTOSIS SLIGHT
[2017-07-31 07:54] LABS: PLATELET MORPHOLOGY COMMENT MANY LARGE
[2017-07-31 07:55] VITALS: BP 138/80
[2017-07-31] MEDS: PANTOPRAZOLE 40 MG 10ML VIAL IV SCH (09:11)
[2017-07-31 09:50] VITALS: BP 138/80
[2017-07-31 11:52] VITALS: BP 132/72
[2017-07-31] MEDS: HYDROCODONE/APAP 7.5MG-325MG 1 EA TAB PO PRN (15:55)
[2017-07-31 15:56] VITALS: BP 147/95
[2017-07-31] MEDS ORDERED: NORCO 7.5-3251 EACH PO (18:22)
== END 2017-07-31 18:46 | disposition home health service (06) | DRG 856 ==
LOC: ER 01:35 → UNDOADMIN 03:40 → ERHOLD 03:40 → OR 04:25 → ICU 08:49 → MED/SURG 07-25 23:55
PROVIDERS: ADMIT Surgery; ATTEND Surgery
PROC: 0W9G00Z Drainage of Peritoneal Cavity with Drainage Device, Open Approach (ICD-10-PCS; 2017-07-23)
PROC: 0D1L074 Bypass Transverse Colon to Cutaneous with Autologous Tissue Substitute, Open Approach (ICD-10-PCS; principal; 2017-07-23 04:56)
PROC: 30233N1 Transfusion of Nonautologous Red Blood Cells into Peripheral Vein, Percutaneous Approach (ICD-10-PCS; 2017-07-28)
DX: T81.4XXA Infection following a procedure, initial encounter (principal); A41.9 Sepsis, unspecified organism; K63.1 Perforation of intestine (nontraumatic); K91.89 Other postprocedural complications and disorders of digestive system; Z90.49 Acquired absence of other specified parts of digestive tract
CPT/HCPCS: 36415; 71046; 74177; 80048; 80053; 80307; 81001; 82150; 82550; 82553; 83605; 83690; 83735; 84484; 85025; 85610; 85730; 86850; 86900; 86920; 87040; 87086; 93005; 96367; 96374; 96375; 99284; J1100; J1170; J1885; J1940; J2001; J2185; J2270; J2405; J2543; J2550; J2765; J3370; J7030; J7050; J7120; P9016; Q9967

== ENCOUNTER → 2017-08-26 | Outpatient (CLI) | payer OTHER ==
[~2017-08-26] MED LIST changes: +IOPAMIDOL 370 MG/ML 200 ML INFUS..BTL INJ ONE; +SODIUM CHLORIDE 0.9% 50ML 50 ML ONE
--- NOTE | 2017-08-26 18:52 | Diagnostic Imaging Report ---
EXAM: CT Chest WITH contrast (PE Protocol) INDICATION: Right-sided chest pain. \[id number] \S\[id number] COMPARISON: None TECHNIQUE: Chest was scanned utilizing a multidetector helical scanner from the lung apex through the level of the diaphragm after administration of IV contrast. Thin section reconstructions were obtained with special concentration on the pulmonary arteries. Coronal and sagittal reformations were obtained. Pulmonary embolism protocol was performed. IV CONTRAST: 100 mL of Isovue-370 COMPLICATIONS: None RADIATION DOSE: Total DLP: 560.23 mGy*cm Estimated effective dose: (DLP x 0.014 x size factor) mSv CTDIvol has been reviewed. It is below the limits set by the Radiation Protocol Committee (RPC). FINDINGS: LINES/ TUBES: None. LUNGS AND AIRWAYS: No filling defect is identified within the pulmonary arteries to the segmental level. The lungs are unremarkable. Mild dependent atelectasis. Airways are normal. PLEURA: The pleural spaces are clear. HEART AND MEDIASTINUM: The visualized thyroid gland is normal. No mediastinal, hilar or axillary lymphadenopathy. 3.3 x 4.3 cm anterior right mediastinal cystic lesion (series 2, image 57). The heart is normal in size.. There is no pericardial effusion. . Main pulmonary artery measures 2.6 cm in diameter and the ascending aorta measures 2.5 cm. UPPER ABDOMEN: Splenomegaly. Otherwise, unremarkable. BONES: The visualized bony thorax is within normal limits. SOFT TISSUES: Small bilateral symmetric gynecomastia. IMPRESSION: 1. No pulmonary emboli. 2. No lung consolidation. 3. Again seen 4.3 cm cystic lesion in the anterior right mediastinum, which could represent a pericardial or bronchogenic cyst. Recommend attention on follow-up examination. Signed by: Dr. Jean Cuba MD on 08/26/2017 6:48 PM
== END ==
LOC: CT 17:08
PROVIDERS: ATTEND Family Medicine
DX: R07.81 Pleurodynia (principal); R06.02 Shortness of breath
CPT/HCPCS: 71260; Q9967

== ENCOUNTER → 2017-08-29 | Outpatient (CLI) | payer OTHER ==
[~2017-08-29] MED LIST changes: -IOPAMIDOL 370 MG/ML 200 ML INFUS..BTL INJ ONE; -SODIUM CHLORIDE 0.9% 50ML 50 ML ONE
--- NOTE | 2017-08-29 11:53 | Diagnostic Imaging Report ---
PROCEDURE:TESTICULAR ULTRASOUND COMPARISON:None. INDICATIONS:Right TESTE PAIN TECHNIQUE: Mina-scale and color doppler images of the testicles and scrotal contents were obtained. Duplex imaging with spectral waveform analysis was performed of the testicular arteries and veins. FINDINGS: RIGHT SCROTUM: Testicle: 6 x 2.5 x 3.1 cm. Normal echogenicity. Normal vascularity. No focal lesions. Epididymal head: 1.5 x 0.8 x 1.8 cm.. 0.4 x 0.3 x 0.3 cm and 0.3 x 0.3-0.5 cm cystic, anechoic lesions in the epididymal head. Hydrocele: None Varicocele: None LEFT SCROTUM: Testicle: 4.8 x 2.2 x 3.1 cm. Normal echogenicity. Normal vascularity. No focal lesions. Epididymal head: 0.5 x 0.4 x 0.5 cm cystic, anechoic lesion in the left epididymal head. Hydrocele: Small Varicocele: None. Normal arterial and venous flow is documented in both testicles. No evidence of inguinal hernia. CONCLUSION: 1. Normal bilateral testicular size and echogenicity, without focal lesions. Normal arterial and venous flow, with low likelihood of torsion. 2. Small left hydrocele. 3. Bilateral subcentimeter epididymal head simple cysts versus spermatoceles. Bneton Sabillon M.D. Dictated by: Benton Sabillon M.D. on 08/29/2017 at 11:58 Electronically approved by: Benton Sabillon M.D. on 08/29/2017 at 11:58
--- NOTE | 2017-08-29 11:54 | Diagnostic Imaging Report ---
PROCEDURE:TESTICULAR DOPPLER ULTRASOUND COMPARISON:None. INDICATIONS:TESTE PAIN TECHNIQUE: Mina-scale and color doppler images of the testicles and scrotal contents were CONCLUSION: Please refer to testicular ultrasound performed same date for further detail. Benton Sabillon M.D. Dictated by: Benton Sabillon M.D. on 08/29/2017 at 11:58 Electronically approved by: Benton Sabillon M.D. on 08/29/2017 at 11:58
== END ==
LOC: US 09:01
PROVIDERS: ATTEND Urology
DX: N50.819 Testicular pain, unspecified (principal)
CPT/HCPCS: 76870; 93976

== ENCOUNTER → 2017-12-18 | Outpatient (CLI) | payer OTHER ==
[~2017-12-18] MED LIST changes: +DIATRIZOATE MEGL/DIATRIZOA SOD 120 ML BTL PO ONE; +DIATRIZOATE MEGL/DIATRIZOA SOD 30 ML BTL PO ONE
--- NOTE | 2017-12-18 09:42 | Diagnostic Imaging Report ---
PROCEDURE: X-RAY BARIUM ENEMA - SINGLE CONTRAST COMPARISON: CT Abdomen/Pelvis 07/23/17. INDICATIONS: DIVERTICULITIS/FISTULA TECHNIQUE/FINDINGS:: Semiconductor Assembler film was obtained. Barium was introduced via a rectal tube in a retrograde fashion and fluoroscopic and spot radiographs were obtained. A blind ending pouch involving the rectum and sigmoid colon is noted. A focal mild narrowing in the mid rectum is noted that does not distend. No evidence of leak or diverticula. The rectal tube was then removed. The colostomy site was subsequently accessed with the tube and single contrast barium was administered with fluoroscopic and spot radiographs obtained. This demonstrated a portion of the ascending colon and cecum with opacification of distal small bowel loops. No evidence of intraluminal filling defect, stricture, or leak. CONCLUSION: Post operative changes status post partial colon resection with colostomy and rectal pouch as above. Mild apparent narrowing in the mid rectum which could reflect a mild stricture. No evidence of leak or diverticula. Dictated by: NORMA WILL M.D. on 12/18/2017 at 9:51 Electronically approved by: NORMA WILL M.D. on 12/18/2017 at 9:51
== END ==
LOC: DX 07:52
PROVIDERS: ATTEND Surgery
DX: K57.92 Diverticulitis of intestine, part unspecified, without perforation or abscess without bleeding (principal)
CPT/HCPCS: 74280; Q9663; Q9963

== ENCOUNTER 2018-01-20 07:18 | Inpatient (IN) | payer OTHER ==
[2018-01-17 13:10] LABS: BASOPHILS % 0.5 % (0.0-1.0); EOSINOPHILS # (AUTO) 0.3 (0.0-0.4); EOSINOPHILS % 3.7 % (0.0-6.0); HEMATOCRIT 43.4 % (38.2-49.6); HEMOGLOBIN 14.5 g/dL (14.0-18.0); LYMPHOCYTES # (AUTO) 2.6 (1.0-3.2); LYMPHOCYTES % 29.1 % (18.0-39.1); MEAN CORPUSCULAR HEMOGLOBIN 27.1 pg (28-32); MEAN CORPUSCULAR HGB CONC 33.4 g/dL (31-35); MONOCYTES # (AUTO) 0.8 (0.2-0.8); MONOCYTES % 9.3 % (4.4-11.3); NEUTROPHILS # (AUTO) 5.1 (2.1-6.9); NEUTROPHILS % 57.1 % (38.7-80.0); PLATELET COUNT 293 x10e3/uL (140-360); RED BLOOD COUNT 5.36 x10e6/uL (4.3-5.7)
[2018-01-17 13:27] LABS: ANION GAP 12.6 mmol/L (8-16); BLOOD UREA NITROGEN 9 mg/dL (7-26); BUN/CREATININE RATIO 10 (6-25); CALCIUM 9.2 mg/dL (8.4-10.2); CARBON DIOXIDE 25 mmol/L (22-29); CHLORIDE 107 mmol/L (98-107); CREATININE, SERUM 0.92 mg/dL (0.72-1.25); EST GLOMERULAR FILTRATION RATE > 60 ML/MIN (60-); GLUCOSE 90 mg/dL (74-118); POTASSIUM 4.6 mmol/L (3.5-5.1); SODIUM 140 mmol/L (136-145)
[~2018-01-20] VITALS: Ht 165.1 cm; Wt 96.2 kg
[~2018-01-20 07:18] MED LIST changes: -DIATRIZOATE MEGL/DIATRIZOA SOD 120 ML BTL PO ONE; -DIATRIZOATE MEGL/DIATRIZOA SOD 30 ML BTL PO ONE
--- OUTSIDE RECORDS SUMMARY | 2018-01-20 07:20 | XMS REPORT | Continuity of Care Document ---
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/05/2017 [facility] CONGENITAL CYST OF MEDIASTINUM Active [facility] Medications Medication Details Route Status Patient Instructions Ordering Provider Order Date Source Allergies, Adverse Reactions, Alerts Substance Category Reaction Severity Reaction type Status Date Reported Comments Source Immunizations Immunization Date Given Site Status Last Updated Comments Source Results Order Name Results Value Reference Range Date Interpretation Comments Source Chest 2 views DX Chest 2 views DX Clinical Indication: - mediastinal cyst q34.1 ; postoperative examination z.09 Comparison: 09/19/2017 FINDINGS: The PA and lateral chest radiographs shows normal lung volumes without interstitial or airspace opacities, pleural effusions or pneumothorax. The heart size and pulmonary vasculature are normal. The trachea is midline. There are no clinically significant osseous abnormalities noted. IMPRESSION: No chest radiographic evidence of acute cardiopulmonary disease. SL: [id number] 10/02/2017 - - Read by: Richard Mendoza MD Dictated Date/time: 10/02/17 16:22 Electronically Signed by: Richard Mendoza MD 10/02/17 16:22 FINAL REPORT [facility] Chest 1view Chest 1view DX Portable chest: There is a right chest tube which appears to be entering the lower right pleural space, crossing the mediastinum with the tip overlying the left upper pleural space. There is no visible pneumothorax or significant effusion. I could not exclude minimal postoperative pneumomediastinum. Mild chest wall emphysema over the lower right chest is noted. There has been improvement in right basilar subsegmental atelectasis since the previous day. The lungs and pleural spaces are otherwise clear. The cardiac silhouette is normal in size without pulmonary venous congestion. There is no other s ignificant change. [id number] 09/19/2017 - - Read by: Tomas Winters MD Dictated Date/time: 09/19/17 07:31 Electronically Signed by: Tomas Winters MD 09/19/17 07:37 FINAL REPORT [facility] Chest 1view DX Chest 1view DX Clinical Indication: - VATS thymectomy Comparison: 09/16/2017 FINDINGS: Single AP view of the chest is submitted for interpretation. There is mild bibasilar subsegmental atelectasis. The lungs are otherwise clear and there are no effusions. There is no visible pneumothorax. Cardiomediastinal contours are within normal limits. No gross bony normalities are identified. IMPRESSION: 1. Mild bibasilar subsegmental atelectasis. 2. Lungs are otherwise clear. SL: [id number] 09/18/2017 - - Read by: Micah Rojas MD Dictated Date/time: 09/18/17 11:55 Electronically Signed by: Micah Rojas MD 09/18/17 11:57 FINAL REPORT [facility] Chest 2 views DX Chest 2 views DX Patient Name: SPIKE CORREA : 1980; Age: 37 years y/o Male MR: [id number] * CHEST, 2 views HISTORY: Coughing - preoperative study. COMPARISON: None TECHNIQUE: Frontal and lateral radiographs of the chest were obtained. FINDINGS: There is no evidence of an active or acute process within the chest. The lungs are clear. There are no pleural effusions. The heart and pulmonary vasculature are within normal limits. The regional skeleton is unremarkable. IMPRESSION: 1. No active disease. SL: [id number] 09/16/2017 - - Read by: Rene Lopez MD Dictated Date/time: 09/16/17 11:39 Electronically Signed by: Rene Lopez MD 09/16/17 11:39 FINAL REPORT [facility] Vital Signs Vital Sign Value Date Comments Source Encounters Location Location Details Encounter Type Encounter Number Reason For Visit Attending Provider ADM Date DC Date Status Source Procedures Procedure Code Date Perfomer Comments Source
[2018-01-20] MEDS ORDERED: ACETAMINOPHEN 1000 MG/100 ML IV PRN (13:45)
[2018-01-20] MEDS ORDERED: NALOXONE HCL INJ 0.4 MG/ML AMP IV PRN (13:45)
--- NOTE | 2018-01-20 14:14 | NUR ---
PT RECEIVED FROM PACU TO ROOM 112, AA/O X3. MOM AT BEDSIDE. REPORTING ABDOMINAL PAIN 9/10, TOLERATING DILAUDID EXTRUDER OPERATOR MULTIPLE. DRESSING TO MEDIAL ABDOMEN C/D/I, IRVIN CATH TO BSD WITH CLEAR URINE. ADM ASSESSMENT COMPLETE, VSS. ORIENTED TO ROOM AND CALL SYSTEM.
[2018-01-20 14:20] VITALS: BP 165/90
--- NOTE | 2018-01-20 14:21 | Operative Report ---
DATE OF PROCEDURE: January 20, 2018 PREOPERATIVE DIAGNOSIS: Diverticulitis, status post transverse colostomy. POSTOPERATIVE DIAGNOSIS: Diverticulitis, status post transverse colostomy. OPERATIONS PERFORMED 1. Exploratory laparotomy. 2. Lysis of adhesions. 3. Colon resection. 4. Closure of all colostomy. CARTON MAKING MACHINIST: Dr. Mckinley Millan and ASHLEY Wren. ANESTHESIA: General. COMPLICATIONS: None. ESTIMATED BLOOD LOSS: 100 mL. DESCRIPTION OF PROCEDURE: With the patient lying in bed in the supine position under good general endotracheal anesthesia, the abdomen was prepped with Betadine solution and draped in the usual manner. An elliptical incision was made around the right upper quadrant colostomy. The colostomy was mobilized all the way down to the fascia. It was then from the fascia and the peritoneum. The peritoneum was then entered and the colon was then circumferentially freed up all the way around. Using the LOUIS-75 stapler, the colon was then divided with the excess sent for pathological examination. After this was done, the incision was then extended somewhat towards the midline. We then found the distal transverse colon, which was then slowly and carefully mobilized up to the midline and brought out through the incision. It was then prepared for anastomosis. The colon proximally and distally was cleared, and clamps were placed proximally and distally with the excess distally also being resected. Two anchor stitches of 3-0 silks were then placed in both corners. The clamps were removed. The internal row of the anastomosis was performed with a running suture of 3-0 chromic. This gave us a satisfactory closure. There was no tension. Gloves and instruments were then changed. The anastomosis was then completed with anterior and posterior seromuscular 3-[address] around. This gave us a satisfactory closure without any tension. The ostomy had been completely resected. The anastomosis was returned back to the intra-abdominal cavity without any tension. The wound was then closed in layers. The peritoneum was closed with a running suture of #1 Vicryl. The anterior rectus sheath was closed with interrupted vertical mattresses of #1 Vicryl. Subcutaneous tissue was approximated with 2-0 chromic. The skin was closed with interrupted vertical mattress sutures of 2-0 nylon. A [place] drain was left in the subcutaneous tissue. A dressing was applied. The sponge, lap and needle count was correct. Patient tolerated the procedure well and returned to the recovery in stable condition. Job#: [id number] RI
[2018-01-20] MEDS ORDERED: PROPOFOL IV EMULSION 10 MG/ML 20 ML VIAL ONE (14:36)
[2018-01-20] MEDS ORDERED: ROCURONIUM BROMIDE 10 MG/ML 5ML VIAL ONE (14:36)
[2018-01-20] MEDS ORDERED: GLYCOPYRROLATE INJ 1MG/ 5 ML SYR ONE (14:36)
[2018-01-20] MEDS ORDERED: CEFOXITIN SOD 1 GM VIAL ONE (14:36)
[2018-01-20] MEDS ORDERED: LIDOCAINE HCL 2% LOCAL INJ 5 ML SDV VIAL INJ ONE (14:36)
[2018-01-20] MEDS ORDERED: SEVOFLURANE INHAL SOLN 250 ML PEN BTL ONE (14:36)
[2018-01-20] MEDS ORDERED: NEOSTIGMINE 5 MG/5ML SYR ONE (14:36)
[2018-01-20] MEDS ORDERED: ONDANSETRON HCL INJ 2 MG/ML VIAL ONE (14:36)
[2018-01-20] MEDS ORDERED: DEXAMETHASONE SOD PHOS INJ 4 MG/ML VIAL ONE (14:36)
[2018-01-20] MEDS: PANTOPRAZOLE 40 MG 10ML VIAL IV SCH (15:07)
[2018-01-20] MEDS: DEXTROSE 5%/LACTATED RINGERS 1,000 ML IV SCH ×2 (15:07→23:29)
[2018-01-20] MEDS ORDERED: MORPHINE SULFATE INJ 10 MG/ML ONE (15:13)
[2018-01-20] MEDS ORDERED: MIDAZOLAM HCL 2 MG/2 ML VIAL ONE (15:13)
[2018-01-20] MEDS ORDERED: FENTANYL CITRATE/PF 100MCG/2 ML INJ ONE (15:13)
[2018-01-20] MEDS ORDERED: HYDROMORPHONE 1MG/1ML INJ IV STA (15:54)
--- NOTE | 2018-01-20 16:00 | NUR ---
PT REPORTING CONTINUED PAIN, DR MCMAHAN NOTIFIED UPON LEAVING BUILDING, NEW ORDERS NOTED.
[2018-01-20] MEDS: ONDANSETRON HCL INJ 2 MG/ML VIAL IV PRN ×2 (16:07→19:11)
[2018-01-20 16:11] VITALS: BP 165/90
[2018-01-20] MEDS ORDERED: HYDROMORPHONE 2MG/ML 2 MG/ML ML IV NR (16:15)
[2018-01-20 17:33] VITALS: BP 137/80
[2018-01-20] MEDS: CEFOXITIN 1GM/ NS 50ML 50 ML IV SCH ×2 (18:12→23:29)
[2018-01-20] MEDS: HYDROMORPHONE 0.2MG/ML-SOD CHL 30ML PCA SYRINGE IV PRN (19:01)
[2018-01-20 20:00] VITALS: BP 124/73
[2018-01-21] VITALS (7 sets, daily range): BP systolic 126–154; BP diastolic 59–78
[2018-01-21 05:27] LABS: BASOPHILS % 0.1 % (0.0-1.0); EOSINOPHILS % 0.1 % (0.0-6.0); HEMOGLOBIN 14.3 g/dL (14.0-18.0); LYMPHOCYTES # (AUTO) 1.4 (1.0-3.2); LYMPHOCYTES % 8.8 % (18.0-39.1); MEAN CORPUSCULAR HEMOGLOBIN 27.2 pg (28-32); MEAN CORPUSCULAR HGB CONC 33.3 g/dL (31-35); MEAN CORPUSCULAR VOLUME 81.9 fL (81-99); MONOCYTES # (AUTO) 1.9 (0.2-0.8); MONOCYTES % 12.2 % (4.4-11.3); NEUTROPHILS # (AUTO) 12.4 (2.1-6.9); NEUTROPHILS % 78.5 % (38.7-80.0); PLATELET COUNT 326 x10e3/uL (140-360); RED BLOOD COUNT 5.25 x10e6/uL (4.3-5.7)
[2018-01-21 06:25] LABS: ANION GAP 13.2 mmol/L (8-16); BLOOD UREA NITROGEN 11 mg/dL (7-26); BUN/CREATININE RATIO 12 (6-25); CALCIUM 8.4 mg/dL (8.4-10.2); CARBON DIOXIDE 23 mmol/L (22-29); CHLORIDE 104 mmol/L (98-107); CREATININE, SERUM 0.89 mg/dL (0.72-1.25); EST GLOMERULAR FILTRATION RATE > 60 ML/MIN (60-); GLUCOSE 116 mg/dL (74-118); POTASSIUM 4.2 mmol/L (3.5-5.1); SODIUM 136 mmol/L (136-145)
[2018-01-21] MEDS: HYDROMORPHONE 0.2MG/ML-SOD CHL 30ML PCA SYRINGE IV PRN ×3 (07:19→19:10)
[2018-01-21 08:02] LABS: BAND NEUTROPHILS % (MANUAL) 4 %; LYMPHOCYTES % (MANUAL) 11 % (19-48); MONOCYTES % (MANUAL) 14 % (3.4-9.0); NEUTROPHILS % (MANUAL) 71 % (40-74); NUCLEATED RED BLOOD CELLS 5
[2018-01-21 08:03] LABS: PLATELET ESTIMATE ADEQUATE; PLATELET MORPHOLOGY COMMENT NORMAL; RBC MORPHOLOGY COMMENT NORMAL
--- NOTE | 2018-01-21 09:30 | NUR ---
PT RECEIVED LYING IN BED, AA/O X3. REPORTING ABDOMINAL PAIN 6/10, TOLERATING DILAUDID COIL WRAPPER. DRESSING TO MEDIAL ABDOMEN C/D/I, IRVIN CATH TO BSD WITH CLEAR URINE. ASSESSMENT COMPLETE, VSS. DISCUSSED PLAN FOR THE DAY
--- NOTE | 2018-01-21 09:50 | NUR ---
PT ASSISTED TO BSD CHAIR, TOLERATING WELL
[2018-01-21] MEDS: KETOROLAC TROMETHAMINE 30 MG/ML VIAL IV PRN (09:56)
[2018-01-21] MEDS: ONDANSETRON HCL INJ 2 MG/ML VIAL IV PRN (09:56)
[2018-01-21] MEDS: DEXTROSE 5%/LACTATED RINGERS 1,000 ML IV SCH ×2 (10:25→20:27)
--- NOTE | 2018-01-21 13:55 | NUR ---
Visit made by the Spiritual Care Department Pastoral Visitor, Kelli Maya. Pt sleeping soundly and no family present. Pastoral Visitor left a card describing availability of edge sander and instructions on how to contact a edge sander. LAEX MIRELES Offset Printer Spiritual Care Department O: [phone] Pager: [phone] ([phone] number calling from)
[2018-01-21] MEDS: PANTOPRAZOLE 40 MG 10ML VIAL IV SCH (15:45)
[2018-01-22] VITALS (7 sets, daily range): BP systolic 136–170; BP diastolic 64–84
--- NOTE | 2018-01-22 00:15 | NUR ---
PT IS LYEING ON THE BED.ASSESSMENT DONE.NO RESP.DISTRESS.INCISION SITE IS DRY AND INTACT.PHONE AND CALL LIGHT WITHIN REACH.INSTRUCTED TO CALL FOR ASSISTANCE NEEDED.IRVIN CARE GIVEN DRAINING WELL.
[2018-01-22] MEDS: HYDROMORPHONE 0.2MG/ML-SOD CHL 30ML PCA SYRINGE IV PRN ×2 (01:13→23:07)
[2018-01-22 05:33] LABS: BASOPHILS % 0.3 % (0.0-1.0); EOSINOPHILS # (AUTO) 0.2 (0.0-0.4); EOSINOPHILS % 1.8 % (0.0-6.0); HEMATOCRIT 38.2 % (38.2-49.6); HEMOGLOBIN 12.6 g/dL (14.0-18.0); LYMPHOCYTES # (AUTO) 1.6 (1.0-3.2); LYMPHOCYTES % 17.3 % (18.0-39.1); MEAN CORPUSCULAR HEMOGLOBIN 27.4 pg (28-32); MONOCYTES # (AUTO) 1.4 (0.2-0.8); MONOCYTES % 15.4 % (4.4-11.3); NEUTROPHILS # (AUTO) 5.8 (2.1-6.9); NEUTROPHILS % 64.9 % (38.7-80.0); PLATELET COUNT 221 x10e3/uL (140-360); RED CELL DISTRIBUTION WIDTH 15.2 % (11.7-14.4)
[2018-01-22] MEDS: DEXTROSE 5%/LACTATED RINGERS 1,000 ML IV SCH ×2 (05:40→16:00)
[2018-01-22 05:53] LABS: ANION GAP 10.8 mmol/L (8-16); BLOOD UREA NITROGEN 10 mg/dL (7-26); BUN/CREATININE RATIO 11 (6-25); CALCIUM 8.3 mg/dL (8.4-10.2); CARBON DIOXIDE 25 mmol/L (22-29); CHLORIDE 102 mmol/L (98-107); CREATININE, SERUM 0.88 mg/dL (0.72-1.25); EST GLOMERULAR FILTRATION RATE > 60 ML/MIN (60-); GLUCOSE 100 mg/dL (74-118); POTASSIUM 3.8 mmol/L (3.5-5.1); SODIUM 134 mmol/L (136-145)
[2018-01-22] MEDS ORDERED: ACETAMINOPHEN 1000 MG/100 ML IV PRN (06:00)
[2018-01-22] MEDS ORDERED: ACETAMINOPHEN 1000 MG/100 ML IV SCH (06:00)
--- NOTE | 2018-01-22 06:34 | NUR ---
IRVIN REMOVED.CATHETER TIP IS INTACT.DUE TO VOID.
[2018-01-22] MEDS: KETOROLAC TROMETHAMINE 30 MG/ML VIAL IV PRN (10:25)
[2018-01-22] MEDS: ONDANSETRON HCL INJ 2 MG/ML VIAL IV PRN (13:36)
[2018-01-22] MEDS: PANTOPRAZOLE 40 MG 10ML VIAL IV SCH (16:00)
[2018-01-23] VITALS (7 sets, daily range): BP systolic 125–155; BP diastolic 60–84
[2018-01-23] MEDS: DEXTROSE 5%/LACTATED RINGERS 1,000 ML IV SCH (00:47)
[2018-01-23 05:45] LABS: BASOPHILS % 0.3 % (0.0-1.0); EOSINOPHILS # (AUTO) 0.3 (0.0-0.4); EOSINOPHILS % 3.2 % (0.0-6.0); HEMATOCRIT 35.7 % (38.2-49.6); HEMOGLOBIN 12.1 g/dL (14.0-18.0); LYMPHOCYTES # (AUTO) 1.5 (1.0-3.2); LYMPHOCYTES % 19.3 % (18.0-39.1); MEAN CORPUSCULAR HEMOGLOBIN 27.4 pg (28-32); MEAN CORPUSCULAR HGB CONC 33.9 g/dL (31-35); MONOCYTES # (AUTO) 1.1 (0.2-0.8); MONOCYTES % 14.1 % (4.4-11.3); NEUTROPHILS # (AUTO) 4.8 (2.1-6.9); NEUTROPHILS % 62.8 % (38.7-80.0); PLATELET COUNT 217 x10e3/uL (140-360); RED BLOOD COUNT 4.41 x10e6/uL (4.3-5.7); RED CELL DISTRIBUTION WIDTH 14.6 % (11.7-14.4)
[2018-01-23 05:59] LABS: ANION GAP 11.4 mmol/L (8-16); BLOOD UREA NITROGEN 7 mg/dL (7-26); BUN/CREATININE RATIO 9 (6-25); CALCIUM 8.4 mg/dL (8.4-10.2); CARBON DIOXIDE 23 mmol/L (22-29); CHLORIDE 102 mmol/L (98-107); EST GLOMERULAR FILTRATION RATE > 60 ML/MIN (60-); GLUCOSE 93 mg/dL (74-118); POTASSIUM 3.4 mmol/L (3.5-5.1); SODIUM 133 mmol/L (136-145)
--- NOTE | 2018-01-23 09:23 | NUR ---
Patient alert and responsive, VSS and K+ 3.4, reported to surgeon and to add 20meq of K+ and orders in place and pharmacy reported.
[2018-01-23] MEDS ORDERED: POTASSIUM CHLORIDE 20 MEQ in DEXTROSE 5%/LACTATED RINGERS 1,000 ML IV SCH (09:45)
[2018-01-23] MEDS: HYDROMORPHONE 0.2MG/ML-SOD CHL 30ML PCA SYRINGE IV PRN ×2 (09:52→18:24)
[2018-01-23] MEDS: POTASSIUM CHLORIDE 20 MEQ in DEXTROSE 5%/LACTATED RINGERS 1,000 ML IV SCH (09:59)
--- NOTE | 2018-01-23 10:00 | NUR ---
Patient alert and responsive, OOB to bathroom and ambulating within room, no distress, replaced Dilaudid syringe in MANAGER PACKAGING pump and pains well managed, will monitor.
--- NOTE | 2018-01-23 12:56 | NUR ---
Patient alert and responsive, left arm slightly puffy at IV site, stopped infusion, flushed line and good blood return, swelling reduced, offered to put in a new line by nurse jewelry manager but patient refused, will monitor
[2018-01-23] MEDS: PANTOPRAZOLE 40 MG 10ML VIAL IV SCH (15:20)
[2018-01-23] MEDS ORDERED: HYDROMORPHONE 1MG/1ML INJ IV PRN (19:15)
--- NOTE | 2018-01-23 22:21 | NUR ---
Per MD order INDUSTRIAL MACHINE ASSEMBLER d/c
[2018-01-23] MEDS: ONDANSETRON HCL INJ 2 MG/ML VIAL IV PRN (22:39)
[2018-01-23] MEDS: HYDROMORPHONE 2MG/ML 2 MG/ML ML IV PRN (22:39)
[2018-01-24] VITALS (9 sets, daily range): BP systolic 132–174; BP diastolic 79–83
[2018-01-24] MEDS: POTASSIUM CHLORIDE 20 MEQ in DEXTROSE 5%/LACTATED RINGERS 1,000 ML IV SCH (04:08)
[2018-01-24] MEDS: ONDANSETRON HCL INJ 2 MG/ML VIAL IV PRN (04:09)
[2018-01-24] MEDS: HYDROMORPHONE 2MG/ML 2 MG/ML ML IV PRN ×3 (04:09→18:03)
--- NOTE | 2018-01-24 07:42 | NUR ---
Received patient this morning and a/ox3, c/o pains and medicated as ordered, in bed, METAL PICKLING EQUIPMENT OPERATOR pump d/c'd, patient had another BM this morning, soft formed, call light within reach, will monitor
[2018-01-24] MEDS: HYDROCODONE/APAP 7.5MG-325MG 1 EA TAB PO PRN ×3 (07:44→20:22)
[2018-01-24 08:42] LABS: ANION GAP 13.9 mmol/L (8-16); BLOOD UREA NITROGEN 9 mg/dL (7-26); BUN/CREATININE RATIO 11 (6-25); CALCIUM 9.3 mg/dL (8.4-10.2); CARBON DIOXIDE 23 mmol/L (22-29); CHLORIDE 100 mmol/L (98-107); CREATININE, SERUM 0.81 mg/dL (0.72-1.25); EST GLOMERULAR FILTRATION RATE > 60 ML/MIN (60-); GLUCOSE 104 mg/dL (74-118); POTASSIUM 3.9 mmol/L (3.5-5.1); SODIUM 133 mmol/L (136-145)
--- NOTE | 2018-01-24 08:51 | NUR ---
Patient alert and responsive, VSS, medicated for pain and call to surgeon for clarification on hemovac and orders in place to remove hemovac and change dressing. Tolerated breakfast and will monitor. Addendum: 01/24/18 at 0914 by Indira Riley RN WRONG ENTRY, DISREGARD NOTE
[2018-01-24] MEDS: PANTOPRAZOLE 40 MG 10ML VIAL IV SCH (14:36)
--- NOTE | 2018-01-24 19:20 | NUR ---
received patient aaox4, resting in bed. no needs voiced at this time. abd surgical drsg c/d/i. encouraged to call for help. call light within easy reach. will continue to monitor the patient closely.
[2018-01-25] VITALS (7 sets, daily range): BP systolic 128–167; BP diastolic 67–86
[2018-01-25] MEDS: HYDROMORPHONE 2MG/ML 2 MG/ML ML IV PRN ×3 (00:09→08:26)
[2018-01-25] MEDS: HYDROCODONE/APAP 7.5MG-325MG 1 EA TAB PO PRN ×3 (08:38→20:00)
[2018-01-25] MEDS: POTASSIUM CHLORIDE 20 MEQ in DEXTROSE 5%/LACTATED RINGERS 1,000 ML IV SCH (14:38)
[2018-01-25] MEDS: PANTOPRAZOLE 40 MG 10ML VIAL IV SCH (15:00)
--- NOTE | 2018-01-25 18:07 | NUR ---
Patient alert and responsive, tolerated GI soft diet, no N/V, no resp distress, VSS, pains well managed and call light within reach and will monitor.
--- NOTE | 2018-01-25 19:08 | NUR ---
received patient in bed, aaox3, stable condition. no needs voiced at this time. update on plan of care. patient verbalized understanding. abd saeid pruett c/d/i. bed locked and in lowest position, call light within easy reach. will continue to monitor the patient closely.
[2018-01-26] VITALS: BP 119/70
[2018-01-26 04:00] VITALS: BP 144/69
[2018-01-26] MEDS: HYDROCODONE/APAP 7.5MG-325MG 1 EA TAB PO PRN ×2 (04:34→09:26)
--- NOTE | 2018-01-26 06:45 | NUR ---
Pt rec'd in walking rounds, AOx3, able to verbalize needs. NAD observed or reported.
[2018-01-26 08:06] LABS: BASOPHILS % 0.4 % (0.0-1.0); EOSINOPHILS # (AUTO) 0.3 (0.0-0.4); EOSINOPHILS % 4.4 % (0.0-6.0); HEMATOCRIT 41.4 % (38.2-49.6); HEMOGLOBIN 13.8 g/dL (14.0-18.0); LYMPHOCYTES # (AUTO) 1.7 (1.0-3.2); LYMPHOCYTES % 22.4 % (18.0-39.1); MEAN CORPUSCULAR HGB CONC 33.3 g/dL (31-35); MEAN CORPUSCULAR VOLUME 80.9 fL (81-99); MONOCYTES # (AUTO) 0.9 (0.2-0.8); MONOCYTES % 12.2 % (4.4-11.3); NEUTROPHILS # (AUTO) 4.4 (2.1-6.9); NEUTROPHILS % 60.2 % (38.7-80.0); PLATELET COUNT 327 x10e3/uL (140-360); RED BLOOD COUNT 5.12 x10e6/uL (4.3-5.7); RED CELL DISTRIBUTION WIDTH 14.4 % (11.7-14.4)
[2018-01-26] MEDS: POTASSIUM CHLORIDE 20 MEQ in DEXTROSE 5%/LACTATED RINGERS 1,000 ML IV SCH (08:10)
[2018-01-26 08:19] LABS: ANION GAP 12.2 mmol/L (8-16); BLOOD UREA NITROGEN 11 mg/dL (7-26); BUN/CREATININE RATIO 14 (6-25); CARBON DIOXIDE 24 mmol/L (22-29); CHLORIDE 105 mmol/L (98-107); CREATININE, SERUM 0.79 mg/dL (0.72-1.25); EST GLOMERULAR FILTRATION RATE > 60 ML/MIN (60-); GLUCOSE 97 mg/dL (74-118); POTASSIUM 4.2 mmol/L (3.5-5.1); SODIUM 137 mmol/L (136-145)
[2018-01-26 08:32] VITALS: BP 147/91
[2018-01-26] MEDS: ONDANSETRON HCL INJ 2 MG/ML VIAL IV PRN (11:42)
[2018-01-26 13:23] VITALS: BP 148/86
--- NOTE | 2018-01-26 14:10 | NUR ---
Discharge instructions given to patient verbally as well as written. Rx given with instructions on purpose and side effects. Pt verbalizes understanding on discharge instructions and discharge RX. IV removed with tip intact. Dressing applied. All personal belongings gathered and packed. Pt will use call light when transportation arrives.
--- NOTE | 2018-01-26 14:15 | NUR ---
Pt escorted to personal vehicle in stable condition with all personal belongings.
== END 2018-01-26 14:15 | disposition home or self-care (01) | DRG 330 ==
LOC: OR 07:18 → PACU V 13:43 → MED/SURG 14:14
PROVIDERS: ADMIT Surgery; ATTEND Surgery
PROC: 0DBL0ZZ Excision of Transverse Colon, Open Approach (ICD-10-PCS; principal; 2018-01-20 09:30)
DX: Z43.3 Encounter for attention to colostomy (principal); K57.32 Diverticulitis of large intestine without perforation or abscess without bleeding
CPT/HCPCS: 36415; 80048; 85025; 88305; 88307; 93005; J0694; J1100; J1885; J2001; J2250; J2270; J2405; J3480